=== PATIENT | male | born 1980 | race Caucasian/White ===

== ENCOUNTER 2022-09-03 15:35 | Inpatient (IN) | payer MEDICARE, OTHER, MEDICAID, SELFPAY ==
[2022-09-03] VITALS (10 sets, daily range): BP systolic 97–121; BP diastolic 42–69; PULSE 51–79; RESP 15–16; TEMP 35.2–36.8; O2SAT 94–100; BMI 35.5
--- NOTE | ~2022-09-03 | MR_ITS ---
EXAMINATION: MR BRAIN WITHOUT AND WITH CONTRAST MR/MR head/brain wo/w con IMPRESSION: No images were obtained.
--- NOTE | ~2022-09-03 | CT_ITS ---
EXAMINATION: CT HEAD WITHOUT CONTRAST CLINICAL INFORMATION: Altered mental status. TECHNIQUE: Multidetector CT imaging of the head was obtained without the use of intravenous contrast. Coronal and sagittal reformatted images were generated at the technologist workstation. This CT examination was performed using dose optimization techniques as appropriate, variously including the following: *Automated exposure control *Adjustment of mA and/or kV according to patient size (this includes techniques or standardized protocols for targeted exams where dose is matched to indication/reason for exam; i.e. extremities or head) *Use of iterative reconstruction technique DLP: 824 mGy-cm. FINDINGS: There is no evidence of acute intracranial hemorrhage or territorial infarction. No abnormal mass-effect or midline shift is seen. Trent to white matter differentiation is well preserved. No extra-axial fluid collections are identified. The ventricles and sulci are normal in size. There is no abnormal attenuation within the brain parenchyma. The osseous structures and soft tissues are normal. The mastoid air cells are well-aerated. There is mucoperiosteal in the bilateral maxillary and in the right ethmoid and sphenoid sinuses. The frontal sinuses are hypoplastic. CT/CT head/brain wo IV con IMPRESSION: 1. There are no acute bleeds or territorial infarcts. No masses are demonstrated.
--- NOTE | ~2022-09-03 | XR_ITS ---
EXAMINATION: XR CHEST CLINICAL INFORMATION: Weakness COMPARISON: None TECHNIQUE: Frontal view of the chest was obtained. FINDINGS: Hypoinflated lungs. Prominent central pulmonary vasculature, nonspecific but likely accentuated due to low lung volumes. No gross lobar consolidation. The cardiac silhouette is suboptimally visualized due to low lung volumes. No large pleural effusion. No pneumothorax. XR/XR chest 1V IMPRESSION: Low lung volumes. No gross lobar consolidation.
--- NOTE | 2022-09-03 15:41 | ED.GENADULT ---
HPI - General Adult General Chief complaint: General Medical <Rocio Suero NP - Last Filed: 09/03/22 15:50> Stated complaint: sleepy, wanted to get client checked out <Rocio Suero NP - Last Filed: 09/03/22 15:50> Time Seen by Provider: 09/03/22 16:02 <Rocio Suero NP - Last Filed: 09/03/22 15:50> Source: family (Mother) <Rocio Beltran MD - Last Filed: 09/03/22 21:19> Mode of arrival: wheelchair <Rocio Beltran MD - Last Filed: 09/03/22 21:19> Limitations: other (Altered mental status, nonverbal at baseline) <Rocio Beltran MD - Last Filed: 09/03/22 21:19> History of Present Illness HPI narrative: Patient comes to the emergency room accompanied by his mother and intermediate staff. The mother reports that this morning, patient was supposed to have a PCP appointment for his 1 year physical exam. When patient woke up this morning, he was acting normal, at baseline, nonverbal as usual. When the patient and his mother arrived today PCPs office, patient was in his wheelchair, very lethargic. The patient's mother decided to take him back to the intermediate, they allowed him to sleep for approximately 5 hours. Patient has not woken up completely, lethargic, it was decided that the patient needed to come to the emergency room. The mother reports that back on [birth year], on the patient's birthday, patient had a similar presentation. This is the 2nd time that this happens to the patient. The mother spoke with the intermediate director, who raised a concern that there may be a staff member giving illicit drugs to the patient, but has not been confirmed. According to the patient's mother, the mother and the intermediate director already filed the concern to the proper authorities. Patient is unable to give any history. <Rocio Beltran MD - Last Filed: 09/03/22 21:19> Related Data Allergies/adverse reactions: Allergies Allergy/AdvReac Type Severity Reaction Status Date / Time haloperidol [From Haldol] Allergy Unknown Unknown Verified 09/03/22 15:42 lactose Allergy Unknown Unknown Verified 09/03/22 15:43 <Rocio Suero NP - Last Filed: 09/03/22 15:50> Review of Systems Review of Systems: Yes Unobtainable due to mental condition <Rocio Beltran MD - Last Filed: 09/03/22 21:19> [facility] Past Medical History Medical History: Medical History (Updated 09/03/22 @ 21:19 by Rocio Beltran MD) Autism Nonverbal <Rocio Suero NP - Last Filed: 09/03/22 15:50> Social History Social History: Social History Alcohol intake: never Smoked in Last 30 Days: No Advance Directives: No Advance Directives Information Provided: Yes <Rocio Suero NP - Last Filed: 09/03/22 15:50> Physical Exam ED Vital Signs: Vital Signs - 24 hr 09/03/22 15:43 09/03/22 16:25 09/03/22 17:19 Temperature 96.8 F 97.0 F 95.3 F L Pulse Rate 51 53 56 Respiratory Rate 16 16 16 Blood Pressure 109/69 110/59 L 115/66 Pulse Oximetry 97 97 100 Oxygen Delivery Method Room Air Room Air Room Air 09/03/22 18:41 09/03/22 19:55 09/03/22 20:37 Temperature 96.3 F L 96.8 F 97.7 F Pulse Rate 55 65 64 Respiratory Rate 15 16 16 Blood Pressure 105/46 L 121/59 L 97/47 L Pulse Oximetry 97 97 96 Oxygen Delivery Method Room Air Room Air Room Air BMI result Body Mass Index 35.5 <Rocio Suero NP - Last Filed: 09/03/22 15:50> Vital Signs - 24 hr 09/03/22 15:43 09/03/22 16:25 09/03/22 17:19 Temperature 96.8 F 97.0 F 95.3 F L Pulse Rate 51 53 56 Respiratory Rate 16 16 16 Blood Pressure 109/69 110/59 L 115/66 Pulse Oximetry 97 97 100 Oxygen Delivery Method Room Air Room Air Room Air 09/03/22 18:41 09/03/22 19:55 09/03/22 20:37 Temperature 96.3 F L 96.8 F 97.7 F Pulse Rate 55 65 64 Respiratory Rate 15 16 16 Blood Pressure 105/46 L 121/59 L 97/47 L Pulse Oximetry 97 97 96 Oxygen Delivery Method Room Air Room Air Room Air BMI result Body Mass Index 35.5 <Rocio Beltran MD - Last Filed: 09/03/22 21:19> Const Other: Appearance: Very somnolent, arousable to voice Eyes: Borderline pinpoint pupils, Pupils equal, round and reactive to light. ENT: Pharynx normal. Normal oral mucosa Neck: Normal inspection. Neck supple. No lymph nodes noted. No crepitus CVS: Normal heart rate and rhythm. Pulses normal. Normal S1 and S2 Respiratory: No respiratory distress. Breath sounds normal. No Wheezing. No rales Abdomen: Soft and nontender. No rigidity. No distention. Skin: Skin warm and dry. Normal skin color. Normal skin turgor. Extremities: No lower extremity edema. No Lacerations. No Rash Neuro: Somnolent, unable to participate in cranial nerve assessment Psych: calm, somnolent <Rocio Beltran MD - Last Filed: 09/03/22 21:19> Course Course Course Narrative: This is a rapid medical exam. Deferred additional HPI, ROS, PE to primary provider. Patient resides at [facility], [place]) and here with worker. 42 yo male with past medical history of anxiety, OCD, constipation here with complaints of lethargy since waking this morning. Here with staff who cannot recall any injury or trauma. No other s/s that staff is aware of. Unsure if there was any change in medications Patient very drowsy in triage, rouses to verbal but immediately falls asleep. Will check labs, UA, CXR, EKG. VSS-direct to room d/t AMS <Rocio Suero NP - Last Filed: 09/03/22 15:50> This is a rapid medical exam. Deferred additional HPI, ROS, PE to primary provider. Patient resides at [facility], [place]) and here with worker. 42 yo male with past medical history of anxiety, OCD, constipation here with complaints of lethargy since waking this morning. Here with staff who cannot recall any injury or trauma. No other s/s that staff is aware of. Unsure if there was any change in medications Patient very drowsy in triage, rouses to verbal but immediately falls asleep. Will check labs, UA, CXR, EKG. VSS-direct to room d/t AMS Patient's labs do not show any significant acute abnormality. However, patient's rectal temperature is 95.3 degrees. Patient was placed on a Daquan Hugger. Patient wakes up to voice, remains somnolent. I discussed the patient with Dr. Anthony, pt being admitted <Rocio Beltran MD - Last Filed: 09/03/22 21:19> Medical Decision Making Differential Diagnosis Differential Diagnoses: The differential diagnosis associated with the presentation includes (Accidental overdose, medication encephalopathy, sepsis) <Rocio Beltran MD - Last Filed: 09/03/22 21:19> Admission/Observation Consideration of admission/observation: Escalation of care including admission/observation considered (Patient does not seem to be septic, white blood cell count and lactic acid within normal limits, no hypotension. However, patient has hypothermia. No clear reason.) <Rocio Beltran MD - Last Filed: 09/03/22 21:19> Consult Healthcare Provider Management of the patient was discussed with: Hospitalist <Rocio Beltran MD - Last Filed: 09/03/22 21:19> I discussed the patient with Dr. Anthony, we will keep the patient for observation <Rocio Beltran MD - Last Filed: 09/03/22 21:19> Lab Data MDM Lab Attestation statement: I reviewed the patient's lab results. <Rocio Beltran MD - Last Filed: 09/03/22 21:19> Result Diagrams: : 09/03/22 16:49 09/03/22 17:04 <Rocio Suero NP - Last Filed: 09/03/22 15:50> Labs: Lab Results 09/03/22 09/03/22 09/03/22 Range/Units 16:05 16:49 16:49 WBC 5.5 (4.8-10.8) X10*3/uL RBC 5.03 (4.60-5.80) X10*6/uL Hgb 14.8 (14.0-18.0) g/dl Hct 44.0 (42.0-52.0) % MCV 87.5 (80.0-98.0) fL MCH 29.4 (27.0-33.0) pg MCHC 33.6 (31.0-36.0) g/dl RDW 12.1 (11.0-16.0) % Plt Count 172 (160-400) X10*3/uL MPV 9.5 (9.4-12.4) fL Immature Gran % (Auto) 0.4 (0.0-0.4) % Neut % (Auto) 60.5 (45-73) % Lymph % (Auto) 28.5 (20-40) % [place] % (Auto) 7.9 (2-11) % Eos % (Auto) 2.2 (0-4) % Baso % (Auto) 0.5 (0-2) % Lymph # (Auto) 1.6 (1.2-4.9) X10*3/uL [place] # (Auto) 0.4 (0.1-1.2) X10*3/uL Eos # (Auto) 0.1 (0.0-0.4) X10*3/uL Baso # (Auto) 0.0 (0.0-0.2) X10*3/uL Abs Immat Gran (auto) 0.02 (0.00-0.03) X10*3/uL Absolute Neuts (auto) 3.3 (2.0-8.3) x10*3/uL Absolute Nucleated RBC 0.000 (0.0-0.012) X10*3/uL Nucleated RBC % (auto) 0.0 (0.0-0.2) /100WBC VBG pH (7.32-7.43) VBG pCO2 mmHg VBG pO2 mmHg VBG HCO3 (22-26) mmol/L VBG O2 Saturation % VBG Base Excess mmol/L Sodium 138 (135-145) mmol/L Potassium 4.2 (3.3-5.1) mmol/L Chloride 108 (96-108) mmol/L Carbon Dioxide 23 (22-29) mmol/L Anion Gap 11 L (12-20) BUN 17 H (9-16) mg/dL Creatinine 0.72 (0.5-1.4) mg/dL Estim Creat Clear Calc 163.5 Estimated GFR > 60 POC Glucose 104 (60-115) mg/dL Random Glucose 95 (60-115) mg/dL Lactic Acid (0.5-2.0) mmol/L Calcium 9.1 (8.4-10.2) mg/dL Magnesium 2.2 (1.6-2.6) mg/dL Total Bilirubin 0.9 (0.0-1.0) mg/dL Direct Bilirubin 0.3 (0.0-0.5) mg/dL AST 33 (5-37) U/L ALT 69 H (0-40) U/L Alkaline Phosphatase 62 (39-117) U/L Troponin I High Sens (<3.5-35.0) ng/L Total Protein 6.7 (6.5-8.0) g/dL Albumin 4.1 (3.5-5.0) g/dL Lipase (8-78) U/L TSH (0.32-4.0) uIU/mL Urine Color Urine Appearance Urine pH (5.0-9.0) Ur Specific [place] (1.005-1.025) Urine Protein (Neg-Trace) mg/dL Urine Glucose (UA) (Negative) mg/dL Urine Ketones (Negative) mg/dL Urine Blood (Negative) Urine Nitrite (Negative) Ur Leukocyte Esterase (Negative) Urine Opiates Screen (Not Detect) Urine Fentanyl Screen (Not Detect) Ur Barbiturates Screen (Not Detect) Ur Phencyclidine Scrn (Not Detect) Ur Amphetamines Screen (Not Detect) U Benzodiazepines Scrn (Not Detect) Urine Cocaine Screen (Not Detect) U Marijuana (THC) Screen (Not Detect) Ethyl Alcohol mg/dL COVID-19 (BOOM) (Negative) COVID-19 Clin Com Influenza Type A (PCR) (Negative) Influenza Type B (PCR) (Negative) RSV RNA Qual (PCR) (Negative) SARS-CoV-2 RNA (RT-PCR) (Negative) 09/03/22 09/03/22 09/03/22 Range/Units 16:49 16:49 16:49 WBC 5.5 (4.8-10.8) X10*3/uL RBC 4.98 (4.60-5.80) X10*6/uL Hgb 14.8 (14.0-18.0) g/dl Hct 43.4 (42.0-52.0) % MCV 87.1 (80.0-98.0) fL MCH 29.7 (27.0-33.0) pg MCHC 34.1 (31.0-36.0) g/dl RDW 12.1 (11.0-16.0) % Plt Count 172 (160-400) X10*3/uL MPV 9.9 (9.4-12.4) fL Immature Gran % (Auto) 0.4 (0.0-0.4) % Neut % (Auto) 58.9 (45-73) % Lymph % (Auto) 30.1 (20-40) % [place] % (Auto) 8.1 (2-11) % Eos % (Auto) 1.9 (0-4) % Baso % (Auto) 0.6 (0-2) % Lymph # (Auto) 1.6 (1.2-4.9) X10*3/uL [place] # (Auto) 0.4 (0.1-1.2) X10*3/uL Eos # (Auto) 0.1 (0.0-0.4) X10*3/uL Baso # (Auto) 0.0 (0.0-0.2) X10*3/uL Abs Immat Gran (auto) 0.02 (0.00-0.03) X10*3/uL Absolute Neuts (auto) 3.1 (2.0-8.3) x10*3/uL Absolute Nucleated RBC 0.000 (0.0-0.012) X10*3/uL Nucleated RBC % (auto) 0.0 (0.0-0.2) /100WBC VBG pH (7.32-7.43) VBG pCO2 mmHg VBG pO2 mmHg VBG HCO3 (22-26) mmol/L VBG O2 Saturation % VBG Base Excess mmol/L Sodium (135-145) mmol/L Potassium (3.3-5.1) mmol/L Chloride (96-108) mmol/L Carbon Dioxide (22-29) mmol/L Anion Gap (12-20) BUN (9-16) mg/dL Creatinine (0.5-1.4) mg/dL Estim Creat Clear Calc Estimated GFR POC Glucose (60-115) mg/dL Random Glucose (60-115) mg/dL Lactic Acid 1.0 (0.5-2.0) mmol/L Calcium (8.4-10.2) mg/dL Magnesium (1.6-2.6) mg/dL Total Bilirubin (0.0-1.0) mg/dL Direct Bilirubin (0.0-0.5) mg/dL AST (5-37) U/L ALT (0-40) U/L Alkaline Phosphatase (39-117) U/L Troponin I High Sens < 3.5 (<3.5-35.0) ng/L Total Protein (6.5-8.0) g/dL Albumin (3.5-5.0) g/dL Lipase (8-78) U/L TSH (0.32-4.0) uIU/mL Urine Color Urine Appearance Urine pH (5.0-9.0) Ur Specific [place] (1.005-1.025) Urine Protein (Neg-Trace) mg/dL Urine Glucose (UA) (Negative) mg/dL Urine Ketones (Negative) mg/dL Urine Blood (Negative) Urine Nitrite (Negative) Ur Leukocyte Esterase (Negative) Urine Opiates Screen (Not Detect) Urine Fentanyl Screen (Not Detect) Ur Barbiturates Screen (Not Detect) Ur Phencyclidine Scrn (Not Detect) Ur Amphetamines Screen (Not Detect) U Benzodiazepines Scrn (Not Detect) Urine Cocaine Screen (Not Detect) U Marijuana (THC) Screen (Not Detect) Ethyl Alcohol mg/dL COVID-19 (BOOM) (Negative) COVID-19 Clin Com Influenza Type A (PCR) (Negative) Influenza Type B (PCR) (Negative) RSV RNA Qual (PCR) (Negative) SARS-CoV-2 RNA (RT-PCR) (Negative) 09/03/22 09/03/22 09/03/22 Range/Units 16:49 16:49 16:54 WBC (4.8-10.8) X10*3/uL RBC (4.60-5.80) X10*6/uL Hgb (14.0-18.0) g/dl Hct (42.0-52.0) % MCV (80.0-98.0) fL MCH (27.0-33.0) pg MCHC (31.0-36.0) g/dl RDW (11.0-16.0) % Plt Count (160-400) X10*3/uL MPV (9.4-12.4) fL Immature Gran % (Auto) (0.0-0.4) % Neut % (Auto) (45-73) % Lymph % (Auto) (20-40) % [place] % (Auto) (2-11) % Eos % (Auto) (0-4) % Baso % (Auto) (0-2) % Lymph # (Auto) (1.2-4.9) X10*3/uL [place] # (Auto) (0.1-1.2) X10*3/uL Eos # (Auto) (0.0-0.4) X10*3/uL Baso # (Auto) (0.0-0.2) X10*3/uL Abs Immat Gran (auto) (0.00-0.03) X10*3/uL Absolute Neuts (auto) (2.0-8.3) x10*3/uL Absolute Nucleated RBC (0.0-0.012) X10*3/uL Nucleated RBC % (auto) (0.0-0.2) /100WBC VBG pH 7.46 H (7.32-7.43) VBG pCO2 28 mmHg VBG pO2 139 mmHg VBG HCO3 20 L (22-26) mmol/L VBG O2 Saturation 100.0 % VBG Base Excess -1.8 mmol/L Sodium (135-145) mmol/L Potassium (3.3-5.1) mmol/L Chloride (96-108) mmol/L Carbon Dioxide (22-29) mmol/L Anion Gap (12-20) BUN (9-16) mg/dL Creatinine (0.5-1.4) mg/dL Estim Creat Clear Calc Estimated GFR POC Glucose (60-115) mg/dL Random Glucose (60-115) mg/dL Lactic Acid (0.5-2.0) mmol/L Calcium (8.4-10.2) mg/dL Magnesium (1.6-2.6) mg/dL Total Bilirubin (0.0-1.0) mg/dL Direct Bilirubin (0.0-0.5) mg/dL AST (5-37) U/L ALT (0-40) U/L Alkaline Phosphatase (39-117) U/L Troponin I High Sens (<3.5-35.0) ng/L Total Protein (6.5-8.0) g/dL Albumin (3.5-5.0) g/dL Lipase (8-78) U/L TSH (0.32-4.0) uIU/mL Urine Color Urine Appearance Urine pH (5.0-9.0) Ur Specific [place] (1.005-1.025) Urine Protein (Neg-Trace) mg/dL Urine Glucose (UA) (Negative) mg/dL Urine Ketones (Negative) mg/dL Urine Blood (Negative) Urine Nitrite (Negative) Ur Leukocyte Esterase (Negative) Urine Opiates Screen (Not Detect) Urine Fentanyl Screen (Not Detect) Ur Barbiturates Screen (Not Detect) Ur Phencyclidine Scrn (Not Detect) Ur Amphetamines Screen (Not Detect) U Benzodiazepines Scrn (Not Detect) Urine Cocaine Screen (Not Detect) U Marijuana (THC) Screen (Not Detect) Ethyl Alcohol mg/dL COVID-19 (BOOM) Negative (Negative) COVID-19 Clin Com See Note Influenza Type A (PCR) NEGATIVE (Negative) Influenza Type B (PCR) NEGATIVE (Negative) RSV RNA Qual (PCR) NEGATIVE (Negative) SARS-CoV-2 RNA (RT-PCR) NEGATIVE (Negative) 09/03/22 09/03/22 09/03/22 Range/Units 17:04 18:01 18:01 WBC (4.8-10.8) X10*3/uL RBC (4.60-5.80) X10*6/uL Hgb (14.0-18.0) g/dl Hct (42.0-52.0) % MCV (80.0-98.0) fL MCH (27.0-33.0) pg MCHC (31.0-36.0) g/dl RDW (11.0-16.0) % Plt Count (160-400) X10*3/uL MPV (9.4-12.4) fL Immature Gran % (Auto) (0.0-0.4) % Neut % (Auto) (45-73) % Lymph % (Auto) (20-40) % [place] % (Auto) (2-11) % Eos % (Auto) (0-4) % Baso % (Auto) (0-2) % Lymph # (Auto) (1.2-4.9) X10*3/uL [place] # (Auto) (0.1-1.2) X10*3/uL Eos # (Auto) (0.0-0.4) X10*3/uL Baso # (Auto) (0.0-0.2) X10*3/uL Abs Immat Gran (auto) (0.00-0.03) X10*3/uL Absolute Neuts (auto) (2.0-8.3) x10*3/uL Absolute Nucleated RBC (0.0-0.012) X10*3/uL Nucleated RBC % (auto) (0.0-0.2) /100WBC VBG pH (7.32-7.43) VBG pCO2 mmHg VBG pO2 mmHg VBG HCO3 (22-26) mmol/L VBG O2 Saturation % VBG Base Excess mmol/L Sodium 138 (135-145) mmol/L Potassium 4.2 (3.3-5.1) mmol/L Chloride 106 (96-108) mmol/L Carbon Dioxide 26 (22-29) mmol/L Anion Gap 10 L (12-20) BUN 17 H (9-16) mg/dL Creatinine 0.68 (0.5-1.4) mg/dL Estim Creat Clear Calc 173.1 Estimated GFR > 60 POC Glucose (60-115) mg/dL Random Glucose 96 (60-115) mg/dL Lactic Acid (0.5-2.0) mmol/L Calcium 9.0 (8.4-10.2) mg/dL Magnesium 2.0 (1.6-2.6) mg/dL Total Bilirubin 0.9 (0.0-1.0) mg/dL Direct Bilirubin 0.3 (0.0-0.5) mg/dL AST 30 (5-37) U/L ALT 64 H (0-40) U/L Alkaline Phosphatase 57 (39-117) U/L Troponin I High Sens (<3.5-35.0) ng/L Total Protein 6.2 L (6.5-8.0) g/dL Albumin 4.0 (3.5-5.0) g/dL Lipase 21 (8-78) U/L TSH 1.26 (0.32-4.0) uIU/mL Urine Color Yellow Urine Appearance Clear Urine pH 7.0 (5.0-9.0) Ur Specific [place] 1.010 (1.005-1.025) Urine Protein Negative (Neg-Trace) mg/dL Urine Glucose (UA) Negative (Negative) mg/dL Urine Ketones Negative (Negative) mg/dL Urine Blood Negative (Negative) Urine Nitrite Negative (Negative) Ur Leukocyte Esterase Negative (Negative) Urine Opiates Screen Not Detected (Not Detect) Urine Fentanyl Screen Not Detected (Not Detect) Ur Barbiturates Screen Not Detected (Not Detect) Ur Phencyclidine Scrn Not Detected (Not Detect) Ur Amphetamines Screen Not Detected (Not Detect) U Benzodiazepines Scrn Not Detected (Not Detect) Urine Cocaine Screen Not Detected (Not Detect) U Marijuana (THC) Screen Not Detected (Not Detect) Ethyl Alcohol < 10 mg/dL COVID-19 (BOOM) (Negative) COVID-19 Clin Com Influenza Type A (PCR) (Negative) Influenza Type B (PCR) (Negative) RSV RNA Qual (PCR) (Negative) SARS-CoV-2 RNA (RT-PCR) (Negative) <Rocio Suero, [employer] - Last Filed: 09/03/22 15:50> Lab Results 09/03/22 09/03/22 09/03/22 Range/Units 16:05 16:49 16:49 WBC 5.5 (4.8-10.8) X10*3/uL RBC 5.03 (4.60-5.80) X10*6/uL Hgb 14.8 (14.0-18.0) g/dl Hct 44.0 (42.0-52.0) % MCV 87.5 (80.0-98.0) fL MCH 29.4 (27.0-33.0) pg MCHC 33.6 (31.0-36.0) g/dl RDW 12.1 (11.0-16.0) % Plt Count 172 (160-400) X10*3/uL MPV 9.5 (9.4-12.4) fL Immature Gran % (Auto) 0.4 (0.0-0.4) % Neut % (Auto) 60.5 (45-73) % Lymph % (Auto) 28.5 (20-40) % [place] % (Auto) 7.9 (2-11) % Eos % (Auto) 2.2 (0-4) % Baso % (Auto) 0.5 (0-2) % Lymph # (Auto) 1.6 (1.2-4.9) X10*3/uL [place] # (Auto) 0.4 (0.1-1.2) X10*3/uL Eos # (Auto) 0.1 (0.0-0.4) X10*3/uL Baso # (Auto) 0.0 (0.0-0.2) X10*3/uL Abs Immat Gran (auto) 0.02 (0.00-0.03) X10*3/uL Absolute Neuts (auto) 3.3 (2.0-8.3) x10*3/uL Absolute Nucleated RBC 0.000 (0.0-0.012) X10*3/uL Nucleated RBC % (auto) 0.0 (0.0-0.2) /100WBC VBG pH (7.32-7.43) VBG pCO2 mmHg VBG pO2 mmHg VBG HCO3 (22-26) mmol/L VBG O2 Saturation % VBG Base Excess mmol/L Sodium 138 (135-145) mmol/L Potassium 4.2 (3.3-5.1) mmol/L Chloride 108 (96-108) mmol/L Carbon Dioxide 23 (22-29) mmol/L Anion Gap 11 L (12-20) BUN 17 H (9-16) mg/dL Creatinine 0.72 (0.5-1.4) mg/dL Estim Creat Clear Calc 163.5 Estimated GFR > 60 POC Glucose 104 (60-115) mg/dL Random Glucose 95 (60-115) mg/dL Lactic Acid (0.5-2.0) mmol/L Calcium 9.1 (8.4-10.2) mg/dL Magnesium 2.2 (1.6-2.6) mg/dL Total Bilirubin 0.9 (0.0-1.0) mg/dL Direct Bilirubin 0.3 (0.0-0.5) mg/dL AST 33 (5-37) U/L ALT 69 H (0-40) U/L Alkaline Phosphatase 62 (39-117) U/L Troponin I High Sens (<3.5-35.0) ng/L Total Protein 6.7 (6.5-8.0) g/dL Albumin 4.1 (3.5-5.0) g/dL Lipase (8-78) U/L TSH (0.32-4.0) uIU/mL Urine Color Urine Appearance Urine pH (5.0-9.0) Ur Specific [place] (1.005-1.025) Urine Protein (Neg-Trace) mg/dL Urine Glucose (UA) (Negative) mg/dL Urine Ketones (Negative) mg/dL Urine Blood (Negative) Urine Nitrite (Negative) Ur Leukocyte Esterase (Negative) Urine Opiates Screen (Not Detect) Urine Fentanyl Screen (Not Detect) Ur Barbiturates Screen (Not Detect) Ur Phencyclidine Scrn (Not Detect) Ur Amphetamines Screen (Not Detect) U Benzodiazepines Scrn (Not Detect) Urine Cocaine Screen (Not Detect) U Marijuana (THC) Screen (Not Detect) Ethyl Alcohol mg/dL COVID-19 (BOOM) (Negative) COVID-19 Clin Com Influenza Type A (PCR) (Negative) Influenza Type B (PCR) (Negative) RSV RNA Qual (PCR) (Negative) SARS-CoV-2 RNA (RT-PCR) (Negative) 09/03/22 09/03/22 09/03/22 Range/Units 16:49 16:49 16:49 WBC 5.5 (4.8-10.8) X10*3/uL RBC 4.98 (4.60-5.80) X10*6/uL Hgb 14.8 (14.0-18.0) g/dl Hct 43.4 (42.0-52.0) % MCV 87.1 (80.0-98.0) fL MCH 29.7 (27.0-33.0) pg MCHC 34.1 (31.0-36.0) g/dl RDW 12.1 (11.0-16.0) % Plt Count 172 (160-400) X10*3/uL MPV 9.9 (9.4-12.4) fL Immature Gran % (Auto) 0.4 (0.0-0.4) % Neut % (Auto) 58.9 (45-73) % Lymph % (Auto) 30.1 (20-40) % [place] % (Auto) 8.1 (2-11) % Eos % (Auto) 1.9 (0-4) % Baso % (Auto) 0.6 (0-2) % Lymph # (Auto) 1.6 (1.2-4.9) X10*3/uL [place] # (Auto) 0.4 (0.1-1.2) X10*3/uL Eos # (Auto) 0.1 (0.0-0.4) X10*3/uL Baso # (Auto) 0.0 (0.0-0.2) X10*3/uL Abs Immat Gran (auto) 0.02 (0.00-0.03) X10*3/uL Absolute Neuts (auto) 3.1 (2.0-8.3) x10*3/uL Absolute Nucleated RBC 0.000 (0.0-0.012) X10*3/uL Nucleated RBC % (auto) 0.0 (0.0-0.2) /100WBC VBG pH (7.32-7.43) VBG pCO2 mmHg VBG pO2 mmHg VBG HCO3 (22-26) mmol/L VBG O2 Saturation % VBG Base Excess mmol/L Sodium (135-145) mmol/L Potassium (3.3-5.1) mmol/L Chloride (96-108) mmol/L Carbon Dioxide (22-29) mmol/L Anion Gap (12-20) BUN (9-16) mg/dL Creatinine (0.5-1.4) mg/dL Estim Creat Clear Calc Estimated GFR POC Glucose (60-115) mg/dL Random Glucose (60-115) mg/dL Lactic Acid 1.0 (0.5-2.0) mmol/L Calcium (8.4-10.2) mg/dL Magnesium (1.6-2.6) mg/dL Total Bilirubin (0.0-1.0) mg/dL Direct Bilirubin (0.0-0.5) mg/dL AST (5-37) U/L ALT (0-40) U/L Alkaline Phosphatase (39-117) U/L Troponin I High Sens < 3.5 (<3.5-35.0) ng/L Total Protein (6.5-8.0) g/dL Albumin (3.5-5.0) g/dL Lipase (8-78) U/L TSH (0.32-4.0) uIU/mL Urine Color Urine Appearance Urine pH (5.0-9.0) Ur Specific [place] (1.005-1.025) Urine Protein (Neg-Trace) mg/dL Urine Glucose (UA) (Negative) mg/dL Urine Ketones (Negative) mg/dL Urine Blood (Negative) Urine Nitrite (Negative) Ur Leukocyte Esterase (Negative) Urine Opiates Screen (Not Detect) Urine Fentanyl Screen (Not Detect) Ur Barbiturates Screen (Not Detect) Ur Phencyclidine Scrn (Not Detect) Ur Amphetamines Screen (Not Detect) U Benzodiazepines Scrn (Not Detect) Urine Cocaine Screen (Not Detect) U Marijuana (THC) Screen (Not Detect) Ethyl Alcohol mg/dL COVID-19 (BOOM) (Negative) COVID-19 Clin Com Influenza Type A (PCR) (Negative) Influenza Type B (PCR) (Negative) RSV RNA Qual (PCR) (Negative) SARS-CoV-2 RNA (RT-PCR) (Negative) 09/03/22 09/03/22 09/03/22 Range/Units 16:49 16:49 16:54 WBC (4.8-10.8) X10*3/uL RBC (4.60-5.80) X10*6/uL Hgb (14.0-18.0) g/dl Hct (42.0-52.0) % MCV (80.0-98.0) fL MCH (27.0-33.0) pg MCHC (31.0-36.0) g/dl RDW (11.0-16.0) % Plt Count (160-400) X10*3/uL MPV (9.4-12.4) fL Immature Gran % (Auto) (0.0-0.4) % Neut % (Auto) (45-73) % Lymph % (Auto) (20-40) % [place] % (Auto) (2-11) % Eos % (Auto) (0-4) % Baso % (Auto) (0-2) % Lymph # (Auto) (1.2-4.9) X10*3/uL [place] # (Auto) (0.1-1.2) X10*3/uL Eos # (Auto) (0.0-0.4) X10*3/uL Baso # (Auto) (0.0-0.2) X10*3/uL Abs Immat Gran (auto) (0.00-0.03) X10*3/uL Absolute Neuts (auto) (2.0-8.3) x10*3/uL Absolute Nucleated RBC (0.0-0.012) X10*3/uL Nucleated RBC % (auto) (0.0-0.2) /100WBC VBG pH 7.46 H (7.32-7.43) VBG pCO2 28 mmHg VBG pO2 139 mmHg VBG HCO3 20 L (22-26) mmol/L VBG O2 Saturation 100.0 % VBG Base Excess -1.8 mmol/L Sodium (135-145) mmol/L Potassium (3.3-5.1) mmol/L Chloride (96-108) mmol/L Carbon Dioxide (22-29) mmol/L Anion Gap (12-20) BUN (9-16) mg/dL Creatinine (0.5-1.4) mg/dL Estim Creat Clear Calc Estimated GFR POC Glucose (60-115) mg/dL Random Glucose (60-115) mg/dL Lactic Acid (0.5-2.0) mmol/L Calcium (8.4-10.2) mg/dL Magnesium (1.6-2.6) mg/dL Total Bilirubin (0.0-1.0) mg/dL Direct Bilirubin (0.0-0.5) mg/dL AST (5-37) U/L ALT (0-40) U/L Alkaline Phosphatase (39-117) U/L Troponin I High Sens (<3.5-35.0) ng/L Total Protein (6.5-8.0) g/dL Albumin (3.5-5.0) g/dL Lipase (8-78) U/L TSH (0.32-4.0) uIU/mL Urine Color Urine Appearance Urine pH (5.0-9.0) Ur Specific [place] (1.005-1.025) Urine Protein (Neg-Trace) mg/dL Urine Glucose (UA) (Negative) mg/dL Urine Ketones (Negative) mg/dL Urine Blood (Negative) Urine Nitrite (Negative) Ur Leukocyte Esterase (Negative) Urine Opiates Screen (Not Detect) Urine Fentanyl Screen (Not Detect) Ur Barbiturates Screen (Not Detect) Ur Phencyclidine Scrn (Not Detect) Ur Amphetamines Screen (Not Detect) U Benzodiazepines Scrn (Not Detect) Urine Cocaine Screen (Not Detect) U Marijuana (THC) Screen (Not Detect) Ethyl Alcohol mg/dL COVID-19 (BOOM) Negative (Negative) COVID-19 Clin Com See Note Influenza Type A (PCR) NEGATIVE (Negative) Influenza Type B (PCR) NEGATIVE (Negative) RSV RNA Qual (PCR) NEGATIVE (Negative) SARS-CoV-2 RNA (RT-PCR) NEGATIVE (Negative) 09/03/22 09/03/22 09/03/22 Range/Units 17:04 18:01 18:01 WBC (4.8-10.8) X10*3/uL RBC (4.60-5.80) X10*6/uL Hgb (14.0-18.0) g/dl Hct (42.0-52.0) % MCV (80.0-98.0) fL MCH (27.0-33.0) pg MCHC (31.0-36.0) g/dl RDW (11.0-16.0) % Plt Count (160-400) X10*3/uL MPV (9.4-12.4) fL Immature Gran % (Auto) (0.0-0.4) % Neut % (Auto) (45-73) % Lymph % (Auto) (20-40) % [place] % (Auto) (2-11) % Eos % (Auto) (0-4) % Baso % (Auto) (0-2) % Lymph # (Auto) (1.2-4.9) X10*3/uL [place] # (Auto) (0.1-1.2) X10*3/uL Eos # (Auto) (0.0-0.4) X10*3/uL Baso # (Auto) (0.0-0.2) X10*3/uL Abs Immat Gran (auto) (0.00-0.03) X10*3/uL Absolute Neuts (auto) (2.0-8.3) x10*3/uL Absolute Nucleated RBC (0.0-0.012) X10*3/uL Nucleated RBC % (auto) (0.0-0.2) /100WBC VBG pH (7.32-7.43) VBG pCO2 mmHg VBG pO2 mmHg VBG HCO3 (22-26) mmol/L VBG O2 Saturation % VBG Base Excess mmol/L Sodium 138 (135-145) mmol/L Potassium 4.2 (3.3-5.1) mmol/L Chloride 106 (96-108) mmol/L Carbon Dioxide 26 (22-29) mmol/L Anion Gap 10 L (12-20) BUN 17 H (9-16) mg/dL Creatinine 0.68 (0.5-1.4) mg/dL Estim Creat Clear Calc 173.1 Estimated GFR > 60 POC Glucose (60-115) mg/dL Random Glucose 96 (60-115) mg/dL Lactic Acid (0.5-2.0) mmol/L Calcium 9.0 (8.4-10.2) mg/dL Magnesium 2.0 (1.6-2.6) mg/dL Total Bilirubin 0.9 (0.0-1.0) mg/dL Direct Bilirubin 0.3 (0.0-0.5) mg/dL AST 30 (5-37) U/L ALT 64 H (0-40) U/L Alkaline Phosphatase 57 (39-117) U/L Troponin I High Sens (<3.5-35.0) ng/L Total Protein 6.2 L (6.5-8.0) g/dL Albumin 4.0 (3.5-5.0) g/dL Lipase 21 (8-78) U/L TSH 1.26 (0.32-4.0) uIU/mL Urine Color Yellow Urine Appearance Clear Urine pH 7.0 (5.0-9.0) Ur Specific [place] 1.010 (1.005-1.025) Urine Protein Negative (Neg-Trace) mg/dL Urine Glucose (UA) Negative (Negative) mg/dL Urine Ketones Negative (Negative) mg/dL Urine Blood Negative (Negative) Urine Nitrite Negative (Negative) Ur Leukocyte Esterase Negative (Negative) Urine Opiates Screen Not Detected (Not Detect) Urine Fentanyl Screen Not Detected (Not Detect) Ur Barbiturates Screen Not Detected (Not Detect) Ur Phencyclidine Scrn Not Detected (Not Detect) Ur Amphetamines Screen Not Detected (Not Detect) U Benzodiazepines Scrn Not Detected (Not Detect) Urine Cocaine Screen Not Detected (Not Detect) U Marijuana (THC) Screen Not Detected (Not Detect) Ethyl Alcohol < 10 mg/dL COVID-19 (BOOM) (Negative) COVID-19 Clin Com Influenza Type A (PCR) (Negative) Influenza Type B (PCR) (Negative) RSV RNA Qual (PCR) (Negative) SARS-CoV-2 RNA (RT-PCR) (Negative) <Rocio Beltran MD - Last Filed: 09/03/22 21:19> Independent Interpretation I performed an independent interpretation of an: Plain X-Ray (My interpretation of x-rays are no acute findings. FINDINGS: Hypoinflated lungs. Prominent central pulmonary vasculature, nonspecific but likely accentuated due to low lung volumes. Radiology report: No gross lobar consolidation. The cardiac silhouette is suboptimally visualized due to low lung vo) and CT Scan (My interpretation of the head CT shows no acute abnormality, no bleed) <Rocio Beltran MD - Last Filed: 09/03/22 21:19> Interpretation: CT scan report: FINDINGS: There is no evidence of acute intracranial hemorrhage or territorial infarction. No abnormal mass-effect or midline shift is seen. Trent to white matter differentiation is well preserved. No extra-axial fluid collections are identified. The ventricles and sulci are normal in size. There is no abnormal attenuation within the brain parenchyma. The osseous structures and soft tissues are normal. The mastoid air cells are well-aerated. There is mucoperiosteal in the bilateral maxillary and in the right ethmoid and sphenoid sinuses. The frontal sinuses are hypoplastic. CT/CT head/brain wo IV con IMPRESSION: 1. There are no acute bleeds or territorial infarcts. No masses are demonstrated. <Rocio Beltran MD - Last Filed: 09/03/22 21:19> Discharge Plan Discharge Clinical Impression: Hypothermia, Encephalopathy <Rocio Suero NP - Last Filed: 09/03/22 15:50> Patient Disposition: Admitted As Inpatient <Rocio Suero, [employer]PL[employer]ES DEMONSTRATOR - Last Filed: 09/03/22 15:50>
[2022-09-03 16:08] LABS: Glucose, Whole Blood 104 mg/dL (60-115)
--- NOTE | 2022-09-03 16:12 | ECG_ITS ---
Test Reason : ALTERED MENTAL Blood Pressure : / mmHG Vent. Rate : 059 BPM Atrial Rate : 059 BPM P-R Int : 172 ms QRS Dur : 108 ms QT Int : 418 ms P-R-T Axes : 032 047 040 degrees QTc Int : 413 ms Sinus bradycardia Early repolarization Otherwise normal ECG No previous ECGs available Referred By: Rocio Beltran Electronically Signed By:ELPIDIO RAMSEY
--- OUTSIDE RECORDS SUMMARY | 2022-09-03 16:32 | XMS_ITS | Encounter Summary ---
:1980 Author Care Team Providers Name Role Phone Lisa Pritchard MD Primary Care Provider [phone] Reason for Visit Other swollen lip sx started this morning Assessment and Plan 1. Laceration of lip Inner lip laceration appears to be due to patient's own tooth 1 cm abrasion to the outer upper left no laceration to the [place]mil[place] border Will cover with penicillin due to diffus layla poor dentition Monitor for evidence of increased pain o r swelling Ice and salt water rinses There is no other evidence of significan t trauma no fractured teeth Follow-up with primary care provider 5 t o 7 days ? penicillin V potassium 500 mg tablet Discussion Note: None recorded.Patient educational handouts: No information available. Plan of Care Reminders Provider Appointments None recorded. ? ? Lab None recorded. ? ? Referral None recorded. ? ? Procedures None recorded. ? ? Surgeries None recorded. ? ? Imaging None recorded. ? ? Medications Name Start Date ? ? Amitiza 24 mcg capsule ? clonazepam 0.5 mg tablet ? clonazepam 1 mg tablet ? clotrimazole 1 % topical cream ? famotidine 20 mg tablet ? fluoxetine 20 mg capsule ? fluticasone propionate 50 mcg/actuation nasal spray,newman spension ? lorazepam 1 mg tablet ? neomycin 3.5 mg/g-polymyxin B 10,000 unit/g-dexameth 0 .1 % eye oint ? nystatin 100,000 unit/gram topical ointment ? omeprazole 20 mg capsule,delayed release ? penicillin V potassium 500 mg tablet ? Take 1 tablet every 8 hours by oral route for 7 days. polyethylene glycol 3350 17 gram/dose oral powder ? propranolol 10 mg tablet ? ranitidine 150 mg tablet ? triamcinolone acetonide 0.1 % dental paste ? Medications Administered None recorded. Vitals Blood Pressure 97/62 mm[Hg] Results Lab Results None recorded. Allergies Code Code System Name Reaction Severity Onset 06331 RxNorm Halazone ? ? ? Problems None recorded. Procedures None recorded. Vaccine List None recorded. Social History Tobacco Smoking Status Never Smoker Functional Status Unknown. Past Encounters Encounter Date Diagnosis Provider 07/20/2022 Laceration of Lip JOSH Vargas : [address] [place] [address], Ph. [phone] History of Present Illness Note: <div>42-year-old male presenting with mother for evaluation of swollen lip which was noted this morning. Patient is nonverbal. He resides in a care home. His mother went to pick him up from thegroup home this morning when the morning staff noted a lip abrasion. Mother investigated further andnoted an internal laceration. Patient is unable to notify us of any other injuries. Per mother he isotherwise acting himself and there is no other evidence of injuries.</div> Review of Systems ? Comprehensive General Adult ROS Reported By: Patient Physical Exam ? Notes: <div>General: Alert and coop erative, no apparent distress</div><div>
</div ><div>Head: Normocephalic atraumatic no tenderness, step-offs, or ec chymosis

Skin: [place] warm and dry. 1 cm superficial abrasion to uppe r lip no active bleeding no foreign body or surrounding erythema

Eyes: Pupils equal round and reactive to light and accommodation bilaterally. E xtra ocular movements intact. Conjunctiva are clear bilaterally. Noninject ed sclera.

ENT: TMs are clear with visible tympanic membranes noted gilma aterally. Ear canals are without cerumen and infection bilaterally. Nasal passages are clear. Pharynx without erythema or edema diffusely. Uvula is mi dline. Tonsils without exudate noted bilaterally. No hemotympanum. Inner aspec t of upper lip with 1 cm superficial laceration no active bleeding lines up wit h central incisor, diffusely poor dentition no fractured teeth or loose luciana th. Halitosis.

Heart: Regular rate and rhythm with no murmurs, rubs , gallops

Lungs: Are clear to auscultation bilaterally with no wheezes, rales or rhonchi

Abdominal exam: Abdomen is soft nontender nondistend ed throughout.

Genitourinary: Negative CVA tenderness bilaterally. No s uprapubic tenderness. No vaginal discharge. No penile discharge.

Musculoskeletal: Full range of motion of upper and lower extremities bilaterall y. No vertebral point tenderness C-spine through L-spine, no crepitus or step -offs no ecchymosis no deformities normal ambulation

Neuro exam : [employer] Autobody Repairer strength are 5 out of 5 bilaterally. Sensorineurally intact
<b r>Lymph: No cervical lymphadenopathy appreciated

Psych: Pa tient is nonverbal. Follows commands. Patient is calm and cooperative in no d istress.</div>
--- OUTSIDE RECORDS SUMMARY | 2022-09-03 16:32 | XMS_ITS ---
:1980 Author Care Team Providers Name Role Phone ROSMERY CROSS MD Primary Care Provider [phone] Allergies Code Code System Name Reaction Severity Status Onset 39562 RxNorm Halazone ? ? Active ? Medications Name Status Start Date Stop Date ? ? Amitiza 24 mcg capsule Active ? Not avail able clonazepam 0.5 mg tablet Active ? Not huma ilable clonazepam 1 mg tablet Active ? Not avail able clotrimazole 1 % topical cream Active ? N ot available famotidine 20 mg tablet Active ? Not avai lable fluoxetine 20 mg capsule Active ? Not huma ilable fluticasone propionate 50 mcg/actuation nasal Active ? Not available spray,suspension lorazepam 1 mg tablet Active ? Not availa ble neomycin 3.5 mg/g-polymyxin B 10,000 unit/g-dexameth 0.1 % Activ e ? Not available eye oint nystatin 100,000 unit/gram topical ointment Active ? Not available omeprazole 20 mg capsule,delayed release Active ? Not available penicillin V potassium 500 mg tablet Active ? Not available polyethylene glycol 3350 17 gram/dose oral powder Active ? Not available propranolol 10 mg tablet Active ? Not huma ilable ranitidine 150 mg tablet Active ? Not huma ilable triamcinolone acetonide 0.1 % dental paste Active ? Not available Problems None recorded. Procedures None recorded. Results Lab Results None recorded. Past Encounters Encounter Date Diagnosis Provider 07/20/2022 Laceration of Lip Arleth Marcano PA : [address] [place] [address], Ph. Social History Tobacco Smoking Status Never Smoker Vaccine List None recorded. Plan of Care Reminders Provider Appointments None recorded. ? ? Lab None recorded. ? ? Referral None recorded. ? ? Procedures None recorded. ? ? Surgeries None recorded. ? ? Imaging None recorded. ? ? Vitals 07/20/2022 01:00PM Established Patient Blood Pressure 97/62 mm[Hg] 11/20/2019 12:25PM New Patient Blood Pressure 110/60 mm[Hg]
[2022-09-03 16:56] LABS: MANUAL DIFF FLAG NO
[2022-09-03 16:58] LABS: Basophils Percent Auto 0.5 % (0-2); Eosinophils Absolute Auto 0.1 X10*3/uL (0.0-0.4); Eosinophils Percent Auto 2.2 % (0-4); Hematocrit 43.4 % (42.0-52.0); Hemoglobin 14.8 g/dl (14.0-18.0); Imm Gran Abs Auto 0.02 X10*3/uL (0.00-0.03); Imm Gran Pct Auto 0.4 % (0.0-0.4); Lymphocytes Absolute Auto 1.6 X10*3/uL (1.2-4.9); Lymphocytes Percent Auto 28.5 % (20-40); Lymphocytes Percent Auto 30.1 % (20-40); Mean Corpuscular HGB Conc 33.6 g/dl (31.0-36.0); Mean Corpuscular Hemoglobin 29.4 pg (27.0-33.0); Mean Corpuscular Volume 87.5 fL (80.0-98.0); Mean Platelet Volume 9.5 fL (9.4-12.4); Monocytes Absolute Auto 0.4 X10*3/uL (0.1-1.2); Monocytes Percent Auto 7.9 % (2-11); Neutrophils Absolute Auto 3.3 x10*3/uL (2.0-8.3); Neutrophils Percent Auto 60.5 % (45-73); PLT CLUMP 1; Platelet Count 172 X10*3/uL (160-400); Red Blood Count 5.03 X10*6/uL (4.60-5.80); Red Cell Distribution Width 12.1 % (11.0-16.0); SCAN SMEAR FLAG 1; White Blood Count 5.5 X10*3/uL (4.8-10.8)
[2022-09-03 17:00] LABS: Basophils Percent Auto 0.6 % (0-2); Eosinophils Absolute Auto 0.1 X10*3/uL (0.0-0.4); Eosinophils Percent Auto 1.9 % (0-4); Hemoglobin 14.8 g/dl (14.0-18.0); Lymphocytes Absolute Auto 1.6 X10*3/uL (1.2-4.9); Mean Corpuscular HGB Conc 34.1 g/dl (31.0-36.0); Mean Corpuscular Hemoglobin 29.7 pg (27.0-33.0); Mean Corpuscular Volume 87.1 fL (80.0-98.0); Mean Platelet Volume 9.9 fL (9.4-12.4); Monocytes Absolute Auto 0.4 X10*3/uL (0.1-1.2); Monocytes Percent Auto 8.1 % (2-11); Neutrophils Absolute Auto 3.1 x10*3/uL (2.0-8.3); Neutrophils Percent Auto 58.9 % (45-73); Red Blood Count 4.98 X10*6/uL (4.60-5.80); Red Cell Distribution Width 12.1 % (11.0-16.0); Venous Blood Gas Refer to POC result; White Blood Count 5.5 X10*3/uL (4.8-10.8)
[2022-09-03 17:01] LABS: VBG Base Excess -1.8 mmol/L; VBG HCO3 20 mmol/L (22-26); VBG pCO2 28 mmHg; VBG pH 7.46 (7.32-7.43); VBG pO2 139 mmHg
[2022-09-03 17:01] LABS: MANUAL DIFF FLAG NO; Platelet Count 172 X10*3/uL (160-400)
[2022-09-03 17:17] LABS: COVID-19 Test Negative (Negative); IDNOW Serial# 16C4AD1C; Troponin-I High Sensitivity < 3.5 ng/L (<3.5-35.0)
[2022-09-03 17:24] LABS: Alanine Aminotransferase 69 U/L (0-40); Albumin Level 4.1 g/dL (3.5-5.0); Alkaline Phosphatase 62 U/L (39-117); Anion Gap 11 (12-20); Aspartate Amino Transferase 33 U/L (5-37); Bilirubin Direct 0.3 mg/dL (0.0-0.5); Bilirubin Total 0.9 mg/dL (0.0-1.0); Blood Urea Nitrogen 17 mg/dL (9-16); Calcium 9.1 mg/dL (8.4-10.2); Carbon Dioxide 23 mmol/L (22-29); Chloride 108 mmol/L (96-108); Creatinine Clr Calc Pharmacy 163.5; Estimated Glomerular Filt Rate > 60; Glucose Random 95 mg/dL (60-115); Magnesium 2.2 mg/dL (1.6-2.6); Potassium 4.2 mmol/L (3.3-5.1); Sodium 138 mmol/L (135-145); Total Protein 6.7 g/dL (6.5-8.0)
--- NOTE | 2022-09-03 17:39 | MHC.EDTECH ---
THIS PCT WAS GETTING LABS OF PT AND NOTICE PT FELT COLD ,UPON CHECKING RECTAL TEMP PT TEMP WAS 95.3 ,DIANN RODRÍGUEZ AND MD NATION AWARE ,MD NATION SAID TO PUT PT ON BEAR HUGGER WHICH THIS PCT DID .
[2022-09-03 17:42] LABS: Influenza A PCR NEGATIVE (Negative); Influenza B PCR NEGATIVE (Negative); Resp Syncy Virus RNA Qual PCR NEGATIVE (Negative); SARS COV2 PCR INHOUSE NEGATIVE (Negative)
[2022-09-03 18:03] LABS: Alanine Aminotransferase 64 U/L (0-40); Alkaline Phosphatase 57 U/L (39-117); Anion Gap 10 (12-20); Aspartate Amino Transferase 30 U/L (5-37); Bilirubin Direct 0.3 mg/dL (0.0-0.5); Bilirubin Total 0.9 mg/dL (0.0-1.0); Blood Urea Nitrogen 17 mg/dL (9-16); Carbon Dioxide 26 mmol/L (22-29); Chloride 106 mmol/L (96-108); Creatinine Clr Calc Pharmacy 173.1; Estimated Glomerular Filt Rate > 60; Ethanol < 10 mg/dL; Glucose Random 96 mg/dL (60-115); Lipase 21 U/L (8-78); Potassium 4.2 mmol/L (3.3-5.1); Sodium 138 mmol/L (135-145); Thyroid Stimulating Hormone 1.26 uIU/mL (0.32-4.0); Total Protein 6.2 g/dL (6.5-8.0)
[2022-09-03 18:09] LABS: Appearance Urine Clear; Color Urine Yellow; Glucose Urine UA Negative (Negative); Leukocyte Esterase Urine Negative (Negative); Nitrite Urine Negative (Negative); Urine Blood Negative (Negative); Urine Ketones Negative (Negative); Urine Protein Negative (Neg-Trace)
--- NOTE | 2022-09-03 18:14 | PC.NURSE ---
patient non verbal . makes eye contact . comes from shelter . mother at bedside . pearrlla . heart rate regular at 59 beats per minute . breathing even and unlabored . lungs clear throughout . skin pink warm and dry . abdomen soft not tender . patients rectal temp 95.3 , applied bear huger . Dr. jackson aware . Iv placed in right A.C . labs sent . Urine obtained by straight cath and sent . patient on surveillance system monitor . Staff member and mother at bedside . Family and patient aware of plan of care .
[2022-09-03 18:16] LABS: Amphetamine Screen Urine Not Detected (Not Detect); Barbiturates, Urine Not Detected (Not Detect); Benzodiazepines Screen Urine Not Detected (Not Detect); Cannabinoid Screen Urine Not Detected (Not Detect); Cocaine Screen Urine Not Detected (Not Detect); Fentanyl, urine Not Detected (Not Detect); Opiate Screen Urine Not Detected (Not Detect); Phencyclidine Screen Urine Not Detected (Not Detect)
--- NOTE | 2022-09-03 21:05 | PC.NURSE ---
RN received call from Luci nurse case consultant from [facility] requesting update on patient status. Luci . Pt mother and [facility] care worker at patient bed side.
--- NOTE | 2022-09-03 21:06 | PM.IMHP ---
History of Present Illness Date of Service: 09/03/22 Chief Complaint: lethargy this is a 42-year-old male with past medical history of autism, nonverbal at baseline who lives at a correction presents to the hospital with reports of lethargy . history is obtained mostly from patient's mother as patient appears to be sleeping as he is snoring, not responding to verbal or painful stimuli. According to the mother, the correction reported the patient woke up was at his baseline which is generally functional, as he walks around independently, feeds himself, dresses himself. he had an appointment with primary care physician, his mother takes him to the appointment but he seems to be progressively getting more and more lethargic and sleepy. By the time he has his appointment with his primary care physician, he is laying on the exam table and not able to participate in his appointment. Therefore his mother took him home, and she reports that he was not waking up therefore ambulance was called and he was brought into the hospital. No reports of acute infection at [facility]. according to the mother patient experienced 2 similar episodes over the past 6 months that lasted about 4 hours and he would spontaneously recover from them. However, this episode has been going on since morning patient does not seem to be recovering. correction personnel at bedside reports no recent changes to patient's health, and mother reports no acute illness. On arrival to the ED patient hemodynamically stable with a blood pressure of 110/59, and temp of 95.3 degrees. Patient placed on Daquan hugger with improvement in his temperature Labs reviewed unremarkable, blood gas showed a pH of 7.46 with no CO2 retention Labs otherwise unremarkable UDS negative, urine negative, viral serology negative, alcohol level negative head CT shows no acute bleed or territory infarct chest x-ray negative Review of Systems Review of Systems: Yes Unobtainable due to mental condition and Unobtainable due to mental status PMFSH Medical History Autism Nonverbal Social History Household Members: Family Housing: Other Housing Other:: halfway Do you presently have visiting nurse or other home services: Yes Alcohol intake: never Patient Tobacco Use Status: Former Tobacco user Smoked in Last 30 Days: No Use of substances other than those prescribed or required for medical reasons: No Currently Displaying Signs/Symptoms of Drug Intoxication Withdrawal: No Any prior treatment program specific to substance use: No Advance Directives: No Advance Directives Information Provided: Yes Recently lost weight without trying: No Nutrition Risks: No Nutritional Risk Meds Allergies Allergy/AdvReac Type Severity Reaction Status Date / Time haloperidol [From Haldol] Allergy Unknown Unknown Verified 09/03/22 15:42 lactose Allergy Unknown Unknown Verified 09/03/22 15:43 Home Medications Medication Instructions Recorded Confirmed Last Taken Type acetaminophen 325 mg tablet 650 mg PO Q6H PRN headache/back 09/03/22 09/03/22 Unknown History pain/fever bacitracin 500 unit/gram topical 1 appl topical Q12H PRN 09/03/22 09/03/22 Unknown History ointment cut/abrasion bisacodyl 5 mg tablet,delayed 5 mg PO DAILY 09/03/22 09/03/22 Unknown History release cetirizine 10 mg tablet (Zyrtec) 10 mg PO DAILY 09/03/22 09/03/22 Unknown History cholecalciferol (vitamin D3) 50 50 mcg PO DAILY 09/03/22 09/03/22 Unknown History mcg (2,000 unit) tablet clonazepam 0.5 mg tablet 1 tab PO DAILY 09/03/22 09/03/22 Unknown History clonazepam 1 mg tablet 1 tab PO DAILY@1500 09/03/22 09/03/22 Unknown History clonazepam 1 mg tablet 2 tab PO BEDTIME 09/03/22 09/03/22 Unknown History dextromethorphan-guaifenesin 5 5 ml PO Q6H PRN Cough 09/03/22 09/03/22 Unknown History mg-100 mg/5 mL oral liquid (Robitussin Cough-Chest Congestion DM) docusate sodium 100 mg capsule 100 mg PO DAILY@1500 09/03/22 09/03/22 Unknown History docusate sodium 100 mg capsule 200 mg PO DAILY 09/03/22 09/03/22 Unknown History (Colace) fluoxetine 20 mg capsule 1 cap PO DAILY 09/03/22 09/03/22 Unknown History fluticasone propionate 50 2 spray intranasal DAILY 09/03/22 09/03/22 Unknown History mcg/actuation nasal spray,suspension lubiprostone 24 mcg capsule 1 cap PO DAILY@1500 09/03/22 09/03/22 Unknown History (Amitiza) melatonin 3 mg tablet 3 mg PO BEDTIME 09/03/22 09/03/22 Unknown History nystatin 100,000 unit/gram topical 1 applic topical Q8H PRN Rash 09/03/22 09/03/22 Unknown History ointment omeprazole 20 mg capsule,delayed 1 cap PO DAILY@1630 09/03/22 09/03/22 Unknown History release polyethylene glycol 3350 17 gram 17 g PO DAILY 09/03/22 09/03/22 Unknown History oral powder packet (Miralax) polyethylene glycol 3350 17 gram 17 g PO DAILY PRN Constipation 09/03/22 09/03/22 Unknown History oral powder packet (Miralax) polyvinyl alcohol 1.4 % eye drops 1 drp ophthalmic (eye) BID 09/03/22 09/03/22 Unknown History (Artificial Tears (polyvinyl alcohol)) propranolol 10 mg tablet 1 tab PO BEDTIME 09/03/22 09/03/22 Unknown History triamcinolone acetonide 0.1 % 1 appl mucous membrane Q8H PRN 09/03/22 09/03/22 Unknown History dental paste mouth sores Physical Exam Vital Signs and Narrative: Vital Signs: Last Vital Signs Temp 97.7 F 09/03/22 20:37 Pulse 64 09/03/22 20:37 Resp 16 09/03/22 20:37 BP 97/47 L 09/03/22 20:37 Pulse Ox 96 09/03/22 20:37 O2 Del Method 09/03/22 20:37 BMI result Body Mass Index 35.5 Const: Other: patient appears to be sleeping, not waking up to his painful stimuli General: cooperative and no acute distress Eyes: Other: pupils reactive General: appearance normal, both eyes and all related structures Resp: Effort & Inspection: normal respiratory effort Cardio: Rate: regular rate Rhythm: regular rhythm GI: Palpation (GI): Soft to palpation Auscultation: normal bowel sounds Skin: General skin exam: no rashes or lesions noted Extrem: General: Yes normal to inspection and Yes no pedal edema Results Labs CBC and Chem 7: 09/03/22 16:49 09/03/22 17:04 Labs: Laboratory Results - last 24 hr 09/03/22 09/03/22 09/03/22 16:05 16:49 16:49 MCV 87.5 MCH 29.4 MCHC 33.6 RDW 12.1 Plt Count 172 MPV 9.5 Immature Gran % (Auto) 0.4 Neut % (Auto) 60.5 Lymph % (Auto) 28.5 [place] % (Auto) 7.9 Eos % (Auto) 2.2 Baso % (Auto) 0.5 Lymph # (Auto) 1.6 [place] # (Auto) 0.4 Eos # (Auto) 0.1 Baso # (Auto) 0.0 Abs Immat Gran (auto) 0.02 Absolute Neuts (auto) 3.3 Absolute Nucleated RBC 0.000 Nucleated RBC % (auto) 0.0 VBG pH VBG pCO2 VBG pO2 VBG HCO3 VBG O2 Saturation VBG Base Excess Anion Gap 11 L Estim Creat Clear Calc 163.5 Estimated GFR > 60 POC Glucose 104 Random Glucose 95 Lactic Acid Calcium 9.1 Magnesium 2.2 Total Bilirubin 0.9 Direct Bilirubin 0.3 AST 33 ALT 69 H Alkaline Phosphatase 62 Troponin I High Sens Total Protein 6.7 Albumin 4.1 Lipase TSH Urine Color Urine Appearance Urine pH Ur Specific [place] Urine Protein Urine Glucose (UA) Urine Ketones Urine Blood Urine Nitrite Ur Leukocyte Esterase Urine Opiates Screen Urine Fentanyl Screen Ur Barbiturates Screen Ur Phencyclidine Scrn Ur Amphetamines Screen U Benzodiazepines Scrn Urine Cocaine Screen U Marijuana (THC) Screen Ethyl Alcohol COVID-19 (BOOM) COVID-19 Clin Com Influenza Type A (PCR) Influenza Type B (PCR) RSV RNA Qual (PCR) SARS-CoV-2 RNA (RT-PCR) 09/03/22 09/03/22 09/03/22 16:49 16:49 16:49 MCV 87.1 MCH 29.7 MCHC 34.1 RDW 12.1 Plt Count 172 MPV 9.9 Immature Gran % (Auto) 0.4 Neut % (Auto) 58.9 Lymph % (Auto) 30.1 [place] % (Auto) 8.1 Eos % (Auto) 1.9 Baso % (Auto) 0.6 Lymph # (Auto) 1.6 [place] # (Auto) 0.4 Eos # (Auto) 0.1 Baso # (Auto) 0.0 Abs Immat Gran (auto) 0.02 Absolute Neuts (auto) 3.1 Absolute Nucleated RBC 0.000 Nucleated RBC % (auto) 0.0 VBG pH VBG pCO2 VBG pO2 VBG HCO3 VBG O2 Saturation VBG Base Excess Anion Gap Estim Creat Clear Calc Estimated GFR POC Glucose Random Glucose Lactic Acid 1.0 Calcium Magnesium Total Bilirubin Direct Bilirubin AST ALT Alkaline Phosphatase Troponin I High Sens < 3.5 Total Protein Albumin Lipase TSH Urine Color Urine Appearance Urine pH Ur Specific [place] Urine Protein Urine Glucose (UA) Urine Ketones Urine Blood Urine Nitrite Ur Leukocyte Esterase Urine Opiates Screen Urine Fentanyl Screen Ur Barbiturates Screen Ur Phencyclidine Scrn Ur Amphetamines Screen U Benzodiazepines Scrn Urine Cocaine Screen U Marijuana (THC) Screen Ethyl Alcohol COVID-19 (BOOM) COVID-19 Clin Com Influenza Type A (PCR) Influenza Type B (PCR) RSV RNA Qual (PCR) SARS-CoV-2 RNA (RT-PCR) 09/03/22 09/03/22 09/03/22 16:49 16:49 16:54 MCV MCH MCHC RDW Plt Count MPV Immature Gran % (Auto) Neut % (Auto) Lymph % (Auto) [place] % (Auto) Eos % (Auto) Baso % (Auto) Lymph # (Auto) [place] # (Auto) Eos # (Auto) Baso # (Auto) Abs Immat Gran (auto) Absolute Neuts (auto) Absolute Nucleated RBC Nucleated RBC % (auto) VBG pH 7.46 H VBG pCO2 28 VBG pO2 139 VBG HCO3 20 L VBG O2 Saturation 100.0 VBG Base Excess -1.8 Anion Gap Estim Creat Clear Calc Estimated GFR POC Glucose Random Glucose Lactic Acid Calcium Magnesium Total Bilirubin Direct Bilirubin AST ALT Alkaline Phosphatase Troponin I High Sens Total Protein Albumin Lipase TSH Urine Color Urine Appearance Urine pH Ur Specific [place] Urine Protein Urine Glucose (UA) Urine Ketones Urine Blood Urine Nitrite Ur Leukocyte Esterase Urine Opiates Screen Urine Fentanyl Screen Ur Barbiturates Screen Ur Phencyclidine Scrn Ur Amphetamines Screen U Benzodiazepines Scrn Urine Cocaine Screen U Marijuana (THC) Screen Ethyl Alcohol COVID-19 (BOOM) Negative COVID-19 Clin Com See Note Influenza Type A (PCR) NEGATIVE Influenza Type B (PCR) NEGATIVE RSV RNA Qual (PCR) NEGATIVE SARS-CoV-2 RNA (RT-PCR) NEGATIVE 09/03/22 09/03/22 09/03/22 17:04 18:01 18:01 MCV MCH MCHC RDW Plt Count MPV Immature Gran % (Auto) Neut % (Auto) Lymph % (Auto) [place] % (Auto) Eos % (Auto) Baso % (Auto) Lymph # (Auto) [place] # (Auto) Eos # (Auto) Baso # (Auto) Abs Immat Gran (auto) Absolute Neuts (auto) Absolute Nucleated RBC Nucleated RBC % (auto) VBG pH VBG pCO2 VBG pO2 VBG HCO3 VBG O2 Saturation VBG Base Excess Anion Gap 10 L Estim Creat Clear Calc 173.1 Estimated GFR > 60 POC Glucose Random Glucose 96 Lactic Acid Calcium 9.0 Magnesium 2.0 Total Bilirubin 0.9 Direct Bilirubin 0.3 AST 30 ALT 64 H Alkaline Phosphatase 57 Troponin I High Sens Total Protein 6.2 L Albumin 4.0 Lipase 21 TSH 1.26 Urine Color Yellow Urine Appearance Clear Urine pH 7.0 Ur Specific [place] 1.010 Urine Protein Negative Urine Glucose (UA) Negative Urine Ketones Negative Urine Blood Negative Urine Nitrite Negative Ur Leukocyte Esterase Negative Urine Opiates Screen Not Detected Urine Fentanyl Screen Not Detected Ur Barbiturates Screen Not Detected Ur Phencyclidine Scrn Not Detected Ur Amphetamines Screen Not Detected U Benzodiazepines Scrn Not Detected Urine Cocaine Screen Not Detected U Marijuana (THC) Screen Not Detected Ethyl Alcohol < 10 COVID-19 (BOOM) COVID-19 Clin Com Influenza Type A (PCR) Influenza Type B (PCR) RSV RNA Qual (PCR) SARS-CoV-2 RNA (RT-PCR) Imaging Radiologist's Impressions: Impressions Chest X-Ray 09/03/22 16:02 IMPRESSION: Low lung volumes. No gross lobar consolidation. Head CT 09/03/22 19:52 IMPRESSION: 1. There are no acute bleeds or territorial infarcts. No masses are demonstrated. Assessment and Plan (1) Hypothermia: Status: Acute (2) Encephalopathy: Status: Acute Plan 42-year-old male with past medical history of autism presents to hospital evidence of encephalopathy # encephalopathy - unclear etiology at this time - no evidence of acute infection at this time although patient hypothermic, blood pressure is soft - UDS negative - urine negative, CT negative, chest x-ray negative - at this time will obtain EEG,as this is the 3rd episode within the last 3 months - neurology consulted - MRI in a.m. # hypothermia - unclear etiology - no clear source of infection - mild evidence of sepsis - negative lactic acid - given soft BP, will treat with broad-spectrum IV antibiotics - follow cultures, can not discontinue antibiotics if cultures negative - continue Daquan hugger DVT prophylaxis: Lovenox Time Spent With Patient Time: Total time managing care of this patient today ____ minutes. Quality Stroke Does the patient have a stroke diagnosis?: No VTE Prior VTE?: No VTE Risk Level:: Medical - moderate - high VTE Device Contraindication: Treatment Not Indicated VTE Drug Contraindication: N/A - Med Ordered
--- OUTSIDE RECORDS SUMMARY | 2022-09-03 21:23 | XMS_ITS ---
:1980 Author Care Team Providers Name Role Phone ROSMERY CROSS MD Primary Care Provider [phone] Allergies Code Code System Name Reaction Severity Status Onset 47237 RxNorm Halazone ? ? Active ? Medications [...] of Lip Arleth Marcano PA : [address] [place] [address], Ph. [phone] Social History Tobacco Smoking Status Never Smoker [...]
--- OUTSIDE RECORDS SUMMARY | 2022-09-03 21:23 | XMS_ITS | Encounter Summary ---
:1980 Author Care Team Providers Name Role Phone Lisa Pritchard MD Primary Care Provider [phone] Reason for Visit Other swollen lip sx [...] Code Code System Name Reaction Severity Onset 72633 RxNorm Halazone ? ? ? Problems None recorded. Procedures None recorded. Vaccine List None recorded. Social History Tobacco Smoking Status Never Smoker Functional Status Unknown. Past Encounters Encounter Date Diagnosis Provider 07/20/2022 Laceration of Lip JOSH Vargas : [address] [place] [address], Ph. History of Present Illness Note: <div>42-year-old male [...] no tenderness, step-offs, or ec chymosis

Skin: [place] warm and dry. 1 cm superficial abrasion [...] no deformities normal ambulation

Neuro exam : Electronic Pagination System Operator strength are 5 out of 5 bilaterally. Sensorineurally intact
<b r>Lymph: No cervical lymphadenopathy appreciated

Psych: Pa tient is nonverbal. Follows commands. Patient is calm and cooperative in no d istress.</div>
[2022-09-03 21:47] LABS: Lactic Acid 0.5 mmol/L (0.5-2.0)
--- NOTE | 2022-09-03 21:47 | PHA.PROG ---
Admission Date/Time: September 03, 2022 21:04 Indication: sepsis Weight in k.2 kg Adjusted body weight in [place] body weight in Kg: Obesity Dosing Indication % IBW: Serum Creatinine - Last 168 Hours 09/03/22 09/03/22 16:49 17:04 Creatinine 0.72 0.68 Estimated CrCl and GFR - Last 168 Hours 09/03/22 09/03/22 16:49 17:04 Estim Creat Clear Calc 163.5 173.1 Estimated GFR > 60 > 60 Vancomycin Loading Dose: 2000 mg Current Vancomycin Dosing Regimen: 1250 mg q12h Vancomycin Monitoring using AUC goal of 400 - 600 range with trough as surrogate marker: 460 Date and Time for next Vancomycin Level to be drawn: 09/05/22 0800 Pharmacist Comments on Vancomycin Plan: Vancomycin dosing will take advantage of [employer] as a clinical decision support tool that uses Bayesian modeling to calculate individual patient's pharmacokinetic parameters and forecast the patient's drug concentration time course with the target goal AUC 24 range of 400 - 600 mg/L/hr.
--- NOTE | 2022-09-03 21:51 | PHA.MEDREC ---
Pharmacy Consult ? Medication Reconciliation Pharmacy has completed the medication reconciliation. PT FROM [facility], LIST OBTAINED
[2022-09-03] MEDS: Enoxaparin Sodium 40 MG/0.4 ML SYRINGE SUBCUT (22:02)
[2022-09-03] MEDS: Piperacillin Sodium/Tazobactam 3.375 GM in 0.9 % Sodium Chloride 50 ML IV (22:02)
--- NOTE | 2022-09-03 23:00 | PC.NURSE ---
Pt's temp has remained steady at 98.2 with Bearhugger applied. Bearhugger removed from pt and pt covered with warm blankets. Will continue monitor pt's temp throughout the night.
--- NOTE | 2022-09-03 23:37 | PC.NURSE ---
Chano will placed on patient r/t core temp decreased to 97.9. Bill continue to monitor.
[2022-09-04] VITALS: BP 126/58; PULSE 98; RESP 16; TEMP 35.6; O2SAT 95
[2022-09-04] MEDS: Piperacillin Sodium/Tazobactam 3.375 GM in 0.9 % Sodium Chloride 50 ML IV ×4 (03:05→21:01)
[2022-09-04] MEDS: 0.9 % Sodium Chloride Flush 3 ML SYRINGE IVFLUSH ×4 (03:05→21:02)
[2022-09-04 04:26] VITALS: BP 116/65; PULSE 90; RESP 18; TEMP 36.7; O2SAT 93
[2022-09-04 06:02] LABS: MANUAL DIFF FLAG NO
[2022-09-04 06:13] LABS: Basophils Percent Auto 0.4 % (0-2); Eosinophils Absolute Auto 0.1 X10*3/uL (0.0-0.4); Hematocrit 37.6 % (42.0-52.0); Hemoglobin 12.7 g/dl (14.0-18.0); Imm Gran Abs Auto 0.02 X10*3/uL (0.00-0.03); Imm Gran Pct Auto 0.4 % (0.0-0.4); Lymphocytes Absolute Auto 2.2 X10*3/uL (1.2-4.9); Lymphocytes Percent Auto 42.5 % (20-40); Mean Corpuscular HGB Conc 33.8 g/dl (31.0-36.0); Mean Corpuscular Hemoglobin 29.7 pg (27.0-33.0); Mean Corpuscular Volume 87.9 fL (80.0-98.0); Mean Platelet Volume 9.8 fL (9.4-12.4); Monocytes Absolute Auto 0.4 X10*3/uL (0.1-1.2); Monocytes Percent Auto 8.2 % (2-11); Neutrophils Absolute Auto 2.4 x10*3/uL (2.0-8.3); Neutrophils Percent Auto 46.5 % (45-73); Platelet Count 153 X10*3/uL (160-400); Red Blood Count 4.28 X10*6/uL (4.60-5.80); Red Cell Distribution Width 12.1 % (11.0-16.0); White Blood Count 5.1 X10*3/uL (4.8-10.8)
[2022-09-04 06:38] LABS: Anion Gap 11 (12-20); Blood Urea Nitrogen 14 mg/dL (9-16); Carbon Dioxide 22 mmol/L (22-29); Chloride 112 mmol/L (96-108); Creatinine Clr Calc Pharmacy 154.9; Estimated Glomerular Filt Rate > 60; Glucose Random 83 mg/dL (60-115); Potassium 3.6 mmol/L (3.3-5.1); Sodium 141 mmol/L (135-145)
[2022-09-04 07:48] VITALS: BP 115/59; PULSE 77; RESP 20; TEMP 37.4; O2SAT 94
--- NOTE | 2022-09-04 09:58 | MHC.CM.PN ---
CM met with Patient and his Mother/Legal Guardian/Patricia at bedside and addressed IMM with them. Patient is from a [facility] and returning there is the goal, once Patient is medically cleared for dc. CM has initiated and will follow for dc planning. Patient has received Pfizer/covid vax x3 and his PCP is Dr. Jacinto Jon.
--- NOTE | 2022-09-04 10:12 | HO.PM.IMPN ---
Subjective Subjective Date of Service: 09/04/22 Review of Systems Follow-up encephalopathy History of nonverbal autism Physical Exam Vital Signs: Vital Signs: Last Vital Signs Temp 99.3 F 09/04/22 07:48 Pulse 77 09/04/22 07:48 Resp 20 09/04/22 07:48 BP 115/59 L 09/04/22 07:48 Pulse Ox 94 09/04/22 07:48 O2 Del Method 09/04/22 07:48 BMI result Body Mass Index 35.5 Appearing in no acute distress lung sounds are clear to auscultation heart regular rate rhythm, clear S1, S2 positive bowel sounds, abdomen is soft, nontender neuro patient is alert, nonverbal but when completely oriented does follow commands Objective Data Active Medications Acetaminophen (Acetaminophen 325 Mg Tablet) 650 mg PO Q6H PRN PRN Reason: Pain, Mild (Pain Scale 1-3) Docusate Sodium (Docusate Sodium 100 Mg Capsule) 100 mg PO DAILY PRN PRN Reason: Constipation Enoxaparin Sodium (Enoxaparin Sodium 40 Mg/0.4 Ml Syringe) 40 mg SUBCUT Q24H [facility] Last Admin: 09/03/22 22:02 Dose: 40 mg Documented By: WILLA Piperacillin Sod/Tazobactam (Sod 3.375 gm/ Sodium Chloride) 50 mls @ 100 mls/hr IV Q6H [facility] Last Infusion: 09/04/22 03:52 Dose: 0 mls/hr Documented By: DAX Vancomycin HCl 1,250 mg/ (Sodium Chloride) 250 mls @ 166.667 mls/hr IV Q12H [facility] Ondansetron HCl (Ondansetron Hcl 4 Mg/2 Ml Vial) 4 mg IVPUSH Q8H PRN PRN Reason: Nausea and Vomiting Pharmacy Consult (Consult Rx Vancomycin Dosing) 1 each MISCELLANE DAILY PRN PRN Reason: Consult order Sodium Chloride (0.9 % Sodium Chloride Flush 3 Ml Syringe) 3 ml IVFLUSH QSHIFT [facility] Last Admin: 09/04/22 03:05 Dose: 3 ml Documented By: DAX Labs CBC & Chem 7: 09/04/22 05:57 09/04/22 05:57 Labs: Laboratory Results - last 24 hr 09/03/22 09/03/22 09/03/22 16:05 16:49 16:49 MCV 87.5 MCH 29.4 MCHC 33.6 RDW 12.1 Plt Count 172 MPV 9.5 Immature Gran % (Auto) 0.4 Neut % (Auto) 60.5 Lymph % (Auto) 28.5 [place] % (Auto) 7.9 Eos % (Auto) 2.2 Baso % (Auto) 0.5 Lymph # (Auto) 1.6 [place] # (Auto) 0.4 Eos # (Auto) 0.1 Baso # (Auto) 0.0 Abs Immat Gran (auto) 0.02 Absolute Neuts (auto) 3.3 Absolute Nucleated RBC 0.000 Nucleated RBC % (auto) 0.0 VBG pH VBG pCO2 VBG pO2 VBG HCO3 VBG O2 Saturation VBG Base Excess Anion Gap 11 L Estim Creat Clear Calc 163.5 Estimated GFR > 60 POC Glucose 104 Random Glucose 95 Lactic Acid Calcium 9.1 Magnesium 2.2 Total Bilirubin 0.9 Direct Bilirubin 0.3 AST 33 ALT 69 H Alkaline Phosphatase 62 Troponin I High Sens Total Protein 6.7 Albumin 4.1 Lipase TSH Urine Color Urine Appearance Urine pH Ur Specific [place] Urine Protein Urine Glucose (UA) Urine Ketones Urine Blood Urine Nitrite Ur Leukocyte Esterase Urine Opiates Screen Urine Fentanyl Screen Ur Barbiturates Screen Ur Phencyclidine Scrn Ur Amphetamines Screen U Benzodiazepines Scrn Urine Cocaine Screen U Marijuana (THC) Screen Ethyl Alcohol COVID-19 (BOOM) COVID-19 Clin Com Influenza Type A (PCR) Influenza Type B (PCR) RSV RNA Qual (PCR) SARS-CoV-2 RNA (RT-PCR) 09/03/22 09/03/22 09/03/22 16:49 16:49 16:49 MCV 87.1 MCH 29.7 MCHC 34.1 RDW 12.1 Plt Count 172 MPV 9.9 Immature Gran % (Auto) 0.4 Neut % (Auto) 58.9 Lymph % (Auto) 30.1 [place] % (Auto) 8.1 Eos % (Auto) 1.9 Baso % (Auto) 0.6 Lymph # (Auto) 1.6 [place] # (Auto) 0.4 Eos # (Auto) 0.1 Baso # (Auto) 0.0 Abs Immat Gran (auto) 0.02 Absolute Neuts (auto) 3.1 Absolute Nucleated RBC 0.000 Nucleated RBC % (auto) 0.0 VBG pH VBG pCO2 VBG pO2 VBG HCO3 VBG O2 Saturation VBG Base Excess Anion Gap Estim Creat Clear Calc Estimated GFR POC Glucose Random Glucose Lactic Acid 1.0 Calcium Magnesium Total Bilirubin Direct Bilirubin AST ALT Alkaline Phosphatase Troponin I High Sens < 3.5 Total Protein Albumin Lipase TSH Urine Color Urine Appearance Urine pH Ur Specific [place] Urine Protein Urine Glucose (UA) Urine Ketones Urine Blood Urine Nitrite Ur Leukocyte Esterase Urine Opiates Screen Urine Fentanyl Screen Ur Barbiturates Screen Ur Phencyclidine Scrn Ur Amphetamines Screen U Benzodiazepines Scrn Urine Cocaine Screen U Marijuana (THC) Screen Ethyl Alcohol COVID-19 (BOOM) COVID-19 Clin Com Influenza Type A (PCR) Influenza Type B (PCR) RSV RNA Qual (PCR) SARS-CoV-2 RNA (RT-PCR) 09/03/22 09/03/22 09/03/22 16:49 16:49 16:54 MCV MCH MCHC RDW Plt Count MPV Immature Gran % (Auto) Neut % (Auto) Lymph % (Auto) [place] % (Auto) Eos % (Auto) Baso % (Auto) Lymph # (Auto) [place] # (Auto) Eos # (Auto) Baso # (Auto) Abs Immat Gran (auto) Absolute Neuts (auto) Absolute Nucleated RBC Nucleated RBC % (auto) VBG pH 7.46 H VBG pCO2 28 VBG pO2 139 VBG HCO3 20 L VBG O2 Saturation 100.0 VBG Base Excess -1.8 Anion Gap Estim Creat Clear Calc Estimated GFR POC Glucose Random Glucose Lactic Acid Calcium Magnesium Total Bilirubin Direct Bilirubin AST ALT Alkaline Phosphatase Troponin I High Sens Total Protein Albumin Lipase TSH Urine Color Urine Appearance Urine pH Ur Specific [place] Urine Protein Urine Glucose (UA) Urine Ketones Urine Blood Urine Nitrite Ur Leukocyte Esterase Urine Opiates Screen Urine Fentanyl Screen Ur Barbiturates Screen Ur Phencyclidine Scrn Ur Amphetamines Screen U Benzodiazepines Scrn Urine Cocaine Screen U Marijuana (THC) Screen Ethyl Alcohol COVID-19 (BOOM) Negative COVID-19 Clin Com See Note Influenza Type A (PCR) NEGATIVE Influenza Type B (PCR) NEGATIVE RSV RNA Qual (PCR) NEGATIVE SARS-CoV-2 RNA (RT-PCR) NEGATIVE 09/03/22 09/03/22 09/03/22 17:04 18:01 18:01 MCV MCH MCHC RDW Plt Count MPV Immature Gran % (Auto) Neut % (Auto) Lymph % (Auto) [place] % (Auto) Eos % (Auto) Baso % (Auto) Lymph # (Auto) [place] # (Auto) Eos # (Auto) Baso # (Auto) Abs Immat Gran (auto) Absolute Neuts (auto) Absolute Nucleated RBC Nucleated RBC % (auto) VBG pH VBG pCO2 VBG pO2 VBG HCO3 VBG O2 Saturation VBG Base Excess Anion Gap 10 L Estim Creat Clear Calc 173.1 Estimated GFR > 60 POC Glucose Random Glucose 96 Lactic Acid Calcium 9.0 Magnesium 2.0 Total Bilirubin 0.9 Direct Bilirubin 0.3 AST 30 ALT 64 H Alkaline Phosphatase 57 Troponin I High Sens Total Protein 6.2 L Albumin 4.0 Lipase 21 TSH 1.26 Urine Color Yellow Urine Appearance Clear Urine pH 7.0 Ur Specific [place] 1.010 Urine Protein Negative Urine Glucose (UA) Negative Urine Ketones Negative Urine Blood Negative Urine Nitrite Negative Ur Leukocyte Esterase Negative Urine Opiates Screen Not Detected Urine Fentanyl Screen Not Detected Ur Barbiturates Screen Not Detected Ur Phencyclidine Scrn Not Detected Ur Amphetamines Screen Not Detected U Benzodiazepines Scrn Not Detected Urine Cocaine Screen Not Detected U Marijuana (THC) Screen Not Detected Ethyl Alcohol < 10 COVID-19 (BOOM) COVID-19 Clin Com Influenza Type A (PCR) Influenza Type B (PCR) RSV RNA Qual (PCR) SARS-CoV-2 RNA (RT-PCR) 09/03/22 09/04/22 09/04/22 21:27 05:57 05:57 MCV 87.9 MCH 29.7 MCHC 33.8 RDW 12.1 Plt Count 153 L MPV 9.8 Immature Gran % (Auto) 0.4 Neut % (Auto) 46.5 Lymph % (Auto) 42.5 H [place] % (Auto) 8.2 Eos % (Auto) 2.0 Baso % (Auto) 0.4 Lymph # (Auto) 2.2 [place] # (Auto) 0.4 Eos # (Auto) 0.1 Baso # (Auto) 0.0 Abs Immat Gran (auto) 0.02 Absolute Neuts (auto) 2.4 Absolute Nucleated RBC 0.000 Nucleated RBC % (auto) 0.0 VBG pH VBG pCO2 VBG pO2 VBG HCO3 VBG O2 Saturation VBG Base Excess Anion Gap 11 L Estim Creat Clear Calc 154.9 Estimated GFR > 60 POC Glucose Random Glucose 83 Lactic Acid 0.5 Calcium 8.0 L D Magnesium Total Bilirubin Direct Bilirubin AST ALT Alkaline Phosphatase Troponin I High Sens Total Protein Albumin Lipase TSH Urine Color Urine Appearance Urine pH Ur Specific [place] Urine Protein Urine Glucose (UA) Urine Ketones Urine Blood Urine Nitrite Ur Leukocyte Esterase Urine Opiates Screen Urine Fentanyl Screen Ur Barbiturates Screen Ur Phencyclidine Scrn Ur Amphetamines Screen U Benzodiazepines Scrn Urine Cocaine Screen U Marijuana (THC) Screen Ethyl Alcohol COVID-19 (BOOM) COVID-19 Clin Com Influenza Type A (PCR) Influenza Type B (PCR) RSV RNA Qual (PCR) SARS-CoV-2 RNA (RT-PCR) Assessment and Plan (1) Hypothermia: Status: Acute (2) Encephalopathy: Status: Acute Plan 2-year-old male with past medical history of autism presents to hospital evidence of encephalopathy Encephalopathy Unknown etiology at this time Found to be hypothermic initially, temperature up with warming blanket No evidence of acute infection, UA negative, chest CT negative Will obtain EEG for question of seizure episode Neurology consulted MRI Hypothermia. Initially 95.3 Unknown etiology at this time and no clear infectious source Will treat with broad-spectrum antibiotics for now Follow urine cultures Resolved with warming blanket Mental health Continue home medications History of autism Nonverbal, lives in a fdc, mother is very involved in his care GERD Continue PPI DVT prophylaxis: Adarsh Attending Dr. Elder Full code Time Spent With Patient Time: Total time managing care of this patient today ____ minutes. Quality Stroke Does the patient have a stroke diagnosis?: No VTE Prior VTE?: No VTE Risk Level:: Medical - moderate - high VTE Device Contraindication: Treatment Not Indicated VTE Drug Contraindication: N/A - Med Ordered
--- NOTE | 2022-09-04 11:54 | P.CNNE_ITS ---
History of Present Illness Data of Consult Service Date: 09/04/22 Primary Care Provider: Jacinto Jon MD HPI Reason for consult: Decreased responsiveness. Baseline severe autistic disorder [facility] This is a 42-year-old male with h/o severe autism, nonverbal at baseline? who lives in a nursing home presents to the hospital with reports of lethargy and decreased responsiveness. The nursing home reported that the patient woke up at his baseline which is generally functional,? as he walks around independently, feeds himself, dresses himself.? He had an appointment with primary care physician, his mother takes him to the appointment but he became progressively more lethargic and sleepy.?He is laying on the exam table and not able to participate in his appointment.?He was not waking up therefore he was brought into the hospital by ambulance.? No reports of acute infection at residential. ?According to the mother patient experienced 2 similar episodes over the past 6 months that lasted about 4 hours and he would spontaneously recover from them.? However, this episode has been going on since morning patient does not seem to be recovering. No recent changes to patient's health, meds or acute illness.? He is hemodynamically stable with a blood pressure of 110/59, and temp of 95.3 degrees. Patient placed on Daquan hugger with improvement in his temperature Labs reviewed unremarkable. UDS negative, urine negative, viral serology negative, alcohol level negative ?head CT shows no acute bleed or territory infarct Review of Systems Review of Systems: Follow-up encephalopathy History of nonverbal autism Yes Unobtainable due to mental condition and Unobtainable due to mental status PMF Past Medical History Medical History Autism Nonverbal Social History Social History Household Members: Family Housing: Other Housing Other:: shelter Do you presently have visiting nurse or other home services: Yes Alcohol intake: never Patient Tobacco Use Status: Former Tobacco user Smoked in Last 30 Days: No Use of substances other than those prescribed or required for medical reasons: No Currently Displaying Signs/Symptoms of Drug Intoxication Withdrawal: No Any prior treatment program specific to substance use: No Advance Directives: No Advance Directives Information Provided: Yes Recently lost weight without trying: No Nutrition Risks: No Nutritional Risk service: No Current occupational status: disabled Meds Allergies Allergy/AdvReac Type Severity Reaction Status Date / Time haloperidol [From Haldol] Allergy Unknown Unknown Verified 09/03/22 15:42 lactose Allergy Unknown Unknown Verified 09/03/22 15:43 Active Medications: Current Medications Acetaminophen (Acetaminophen 325 Mg Tablet) 650 mg PO Q6H PRN PRN Reason: Pain, Mild (Pain Scale 1-3) Docusate Sodium (Docusate Sodium 100 Mg Capsule) 100 mg PO DAILY PRN PRN Reason: Constipation Enoxaparin Sodium (Enoxaparin Sodium 40 Mg/0.4 Ml Syringe) 40 mg SUBCUT Q24H [facility] Last Admin: 09/03/22 22:02 Dose: 40 mg Piperacillin Sod/Tazobactam (Sod 3.375 gm/ Sodium Chloride) 50 mls @ 100 mls/hr IV Q6H [facility] Last Infusion: 09/04/22 11:36 Dose: Infused Vancomycin HCl 1,250 mg/ (Sodium Chloride) 250 mls @ 166.667 mls/hr IV Q12H [facility] Ondansetron HCl (Ondansetron Hcl 4 Mg/2 Ml Vial) 4 mg IVPUSH Q8H PRN PRN Reason: Nausea and Vomiting Pharmacy Consult (Consult Rx Vancomycin Dosing) 1 each MISCELLANE DAILY PRN PRN Reason: Consult order Sodium Chloride (0.9 % Sodium Chloride Flush 3 Ml Syringe) 3 ml IVFLUSH QSHIFT [facility] Last Admin: 09/04/22 10:27 Dose: 3 ml Home Medications Medication Instructions Recorded Confirmed Last Taken Type acetaminophen 325 mg tablet 650 mg PO Q6H PRN headache/back 09/03/22 09/03/22 Unknown History pain/fever bacitracin 500 unit/gram topical 1 appl topical Q12H PRN 09/03/22 09/03/22 U nknown History ointment cut/abrasion bisacodyl 5 mg tablet,delayed 5 mg PO DAILY 09/03/22 09/03/22 Unknown History release cetirizine 10 mg tablet (Zyrtec) 10 mg PO DAILY 09/03/22 09/03/22 Unknown History cholecalciferol (vitamin D3) 50 50 mcg PO DAILY 09/03/22 09/03/22 Unknown Hist ory mcg (2,000 unit) tablet clonazepam 0.5 mg tablet 1 tab PO DAILY 09/03/22 09/03/22 Unknown History clonazepam 1 mg tablet 1 tab PO DAILY@1500 09/03/22 09/03/22 Unknown History clonazepam 1 mg tablet 2 tab PO BEDTIME 09/03/22 09/03/22 Unknown History dextromethorphan-guaifenesin 5 5 ml PO Q6H PRN Cough 09/03/22 09/03/22 Unknown History mg-100 mg/5 mL oral liquid (Robitussin Cough-Chest Congestion DM) docusate sodium 100 mg capsule 100 mg PO DAILY@1500 09/03/22 09/03/22 Unknown History docusate sodium 100 mg capsule 200 mg PO DAILY 09/03/22 09/03/22 Unknown History (Colace) fluoxetine 20 mg capsule 1 cap PO DAILY 09/03/22 09/03/22 Unknown History fluticasone propionate 50 2 spray intranasal DAILY 09/03/22 09/03/22 Unknown History mcg/actuation nasal spray,suspension lubiprostone 24 mcg capsule 1 cap PO DAILY@1500 09/03/22 09/03/22 Unknown History (Amitiza) melatonin 3 mg tablet 3 mg PO BEDTIME 09/03/22 09/03/22 Unknown History nystatin 100,000 unit/gram topical 1 applic topical Q8H PRN Rash 09/03/22 09/03/22 Unknown History ointment omeprazole 20 mg capsule,delayed 1 cap PO DAILY@1630 09/03/22 09/03/22 Unknown History release polyethylene glycol 3350 17 gram 17 g PO DAILY 09/03/22 09/03/22 Unknown History oral powder packet (Miralax) polyethylene glycol 3350 17 gram 17 g PO DAILY PRN Constipation 09/03/22 09/03/22 Unknown History oral powder packet (Miralax) polyvinyl alcohol 1.4 % eye drops 1 drp ophthalmic (eye) BID 09/03/22 09/03/22 Unknown History (Artificial Tears (polyvinyl alcohol)) propranolol 10 mg tablet 1 tab PO BEDTIME 09/03/22 09/03/22 Unknown History triamcinolone acetonide 0.1 % 1 appl mucous membrane Q8H PRN 09/03/22 09/03/22 Unknown History dental paste mouth sores Physical Exam Vital Signs: Vital Signs: Last Vital Signs Temp 99.3 F 09/04/22 07:48 Pulse 77 09/04/22 07:48 Resp 20 09/04/22 07:48 BP 115/59 L 09/04/22 07:48 Pulse Ox 94 09/04/22 07:48 O2 Del Method 09/04/22 07:48 BMI result Body Mass Index 35.5 Const: Other: patient appears to be sleeping, not waking up to his painful stimuli General: cooperative and no acute distress Eyes: Other: pupils reactive General: appearance normal, both eyes and all related stru ctures Resp: Effort & Inspection: normal respiratory effort Cardio: Rate: regular rate Rhythm: regular rhythm GI: Palpation (GI): Soft to palpation Auscultation: normal bowel sounds Skin: General skin exam: no rashes or lesions noted Neuro: Other: limited cooperation. Neck supple.. Non focal exam. Extrem: General: Yes normal to inspection and Yes no pedal edema Results Labs CBC & Chem 7: 09/04/22 05:57 09/04/22 05:57 Labs: Short CBC 09/03/22 09/03/22 09/04/22 Range/Units 16:49 16:49 05:57 WBC 5.5 5.5 5.1 (4.8-10.8) X10*3/uL Hgb 14.8 14.8 12.7 L (14.0-18.0) g/dl Hct 44.0 43.4 37.6 L (42.0-52.0) % Plt Count 172 172 153 L (160-400) X10*3/uL BMP 09/03/22 09/03/22 09/04/22 16:49 17:04 05:57 Sodium 138 138 141 Potassium 4.2 4.2 3.6 Chloride 108 106 112 H Carbon Dioxide 23 26 22 BUN 17 H 17 H 14 Creatinine 0.72 0.68 0.76 Calcium 9.1 9.0 8.0 L D Liver Function 09/03/22 09/03/22 Range/Units 16:49 17:04 Total Bilirubin 0.9 0.9 (0.0-1.0) mg/dL Direct Bilirubin 0.3 0.3 (0.0-0.5) mg/dL AST 33 30 (5-37) U/L ALT 69 H 64 H (0-40) U/L Alkaline Phosphatase 62 57 (39-117) U/L Albumin 4.1 4.0 (3.5-5.0) g/dL Urine 09/03/22 Range/Units 18:01 Urine Color Yellow Urine Appearance Clear Urine pH 7.0 (5.0-9.0) Ur Specific [place] 1.010 (1.005-1.025) Urine Protein Negative (Neg-Trace) mg/dL Urine Glucose (UA) Negative (Negative) mg/dL Assessment and Plan (1) Hypothermia: Status: Acute (2) Encephalopathy: Status: Acute EEG, TSH, T4, ammonia. MRI brain pending Plan 2-year-old male with past medical history of autism presents to hospital evidence of encephalopathy Encephalopathy Unknown etiology at this time Found to be hypothermic initially, temperature up with warming blanket No evidence of acute infection, UA negative, chest CT negative Will obtain EEG for question of seizure episode Neurology consulted MRI Hypothermia. Initially 95.3 Unknown etiology at this time and no clear infectious source Will treat with broad-spectrum antibiotics for now Follow urine cultures Resolved with warming blanket Mental health Continue home medications History of autism Nonverbal, lives in a nursing home, mother is very involved in his care GERD Continue PPI DVT prophylaxis: Adarsh Attending Dr. Elder Full code Time Spent With Patient Time: Total time managing care of this patient today ____ minutes. Procedures Date of Service Date of Service: 09/04/22
[2022-09-04 11:58] VITALS: BP 122/58; PULSE 79; RESP 20; TEMP 36.6; O2SAT 95
[2022-09-04] MEDS: vancomycin HCL 1,250 MG in 0.9 % Sodium Chloride 250 ML 166.67 MG IV ×2 (12:44→22:22)
[2022-09-04 15:42] VITALS: BP 133/63; PULSE 90; RESP 19; TEMP 36.7; O2SAT 95
--- NOTE | 2022-09-04 18:17 | PM.NEUROPN ---
Subjective Subjective Date of Service: 09/04/22 Interval History: he has improved but not back to baseline. Critical Care Time (minutes): 0 Comment: his MRI can be cancelled. i would recommend reducun his Clonazepam by 0.5mg every 2 wks and get him down to 1mg hs and 0.5mg prn qd for agitation. Physical Exam Vital Signs: Vital Signs: Last Vital Signs Temp 98.0 F 09/04/22 15:42 Pulse 90 09/04/22 15:42 Resp 19 09/04/22 15:42 BP 133/63 09/04/22 15:42 Pulse Ox 95 09/04/22 15:42 O2 Del Method 09/04/22 15:42 BMI result Body Mass Index 35.5 Const: Other: patient appears to be sleeping, not waking up to his painful stimuli General: cooperative and no acute distress Eyes: Other: pupils reactive General: appearance normal, both eyes and all related structures Resp: Effort & Inspection: normal respiratory effort Cardio: Rate: regular rate Rhythm: regular rhythm GI: Palpation (GI): Soft to palpation Auscultation: normal bowel sounds Skin: General skin exam: no rashes or lesions noted Neuro: Other: limited cooperation. Neck supple.. Non focal exam. Extrem: General: Yes normal to inspection and Yes no pedal edema Objective Data Labs CBC & Chem 7: 09/04/22 05:57 09/04/22 05:57 Labs: Laboratory Results - last 24 hr 09/03/22 09/04/22 09/04/22 21:27 05:57 05:57 WBC 5.1 RBC 4.28 L Hgb 12.7 L Hct 37.6 L MCV 87.9 MCH 29.7 MCHC 33.8 RDW 12.1 Plt Count 153 L MPV 9.8 Immature Gran % (Auto) 0.4 Neut % (Auto) 46.5 Lymph % (Auto) 42.5 H [place] % (Auto) 8.2 Eos % (Auto) 2.0 Baso % (Auto) 0.4 Lymph # (Auto) 2.2 [place] # (Auto) 0.4 Eos # (Auto) 0.1 Baso # (Auto) 0.0 Abs Immat Gran (auto) 0.02 Absolute Neuts (auto) 2.4 Absolute Nucleated RBC 0.000 Nucleated RBC % (auto) 0.0 Sodium 141 Potassium 3.6 Chloride 112 H Carbon Dioxide 22 Anion Gap 11 L BUN 14 Creatinine 0.76 Estim Creat Clear Calc 154.9 Estimated GFR > 60 Random Glucose 83 Lactic Acid 0.5 Calcium 8.0 L D Progress Note: A&P Assessment and plan (1) Hypothermia: Status: Acute (2) Encephalopathy: Status: Acute Assessment and Plan: EEG, TSH, T4, ammonia. MRI brain pending Plan 2-year-old male with past medical history of autism presents to hospital evidence of encephalopathy Encephalopathy Unknown etiology at this time Found to be hypothermic initially, temperature up with warming blanket No evidence of acute infection, UA negative, chest CT negative Will obtain EEG for question of seizure episode Neurology consulted MRI Hypothermia. Initially 95.3 Unknown etiology at this time and no clear infectious source Will treat with broad-spectrum antibiotics for now Follow urine cultures Resolved with warming blanket Mental health Continue home medications History of autism Nonverbal, lives [place] [facility] [place], mother is very involved in his care GERD Continue PPI DVT prophylaxis: Adarsh Attending Dr. Elder Full code Time Spent With Patient Time: Total time managing care of this patient today ____ minutes. Procedures Date of Service Date of Service: 09/04/22 Quality Stroke Does the patient have a stroke diagnosis?: No VTE Prior VTE?: No VTE Risk Level:: Medical - moderate - high VTE Device Contraindication: Treatment Not Indicated VTE Drug Contraindication: N/A - Med Ordered
[2022-09-04 19:30] VITALS: BP 121/55; PULSE 85; RESP 19; TEMP 36.4; O2SAT 93
[2022-09-04] MEDS: Propranolol HCL 10 MG TABLET PO (21:00)
[2022-09-04] MEDS: Melatonin 3 MG TABLET PO (21:00)
[2022-09-04] MEDS: clonazePAM 1 MG TABLET 2 MG PO (21:00)
[2022-09-04] MEDS: Enoxaparin Sodium 40 MG/0.4 ML SYRINGE SUBCUT (21:01)
[2022-09-04] MEDS: Artificial Tears 15 ML DROPS 1 DROP EYE-BOTH (21:01)
[2022-09-05] VITALS: BP 99/60; PULSE 64; RESP 17; TEMP 36.7; O2SAT 97
[2022-09-05 04:00] VITALS: BP 107/53; PULSE 54; RESP 17; TEMP 36.6; O2SAT 94
[2022-09-05] MEDS: Piperacillin Sodium/Tazobactam 3.375 GM in 0.9 % Sodium Chloride 50 ML IV (04:48)
[2022-09-05 08:00] VITALS: BP 127/83; PULSE 100; RESP 14; TEMP 36.8; O2SAT 97
[2022-09-05] MEDS: Docusate Sodium 100 MG CAPSULE 200 MG PO (08:22)
[2022-09-05] MEDS: clonazePAM 0.5 MG TABLET PO (08:22)
[2022-09-05] MEDS: 0.9 % Sodium Chloride Flush 3 ML SYRINGE IVFLUSH (08:22)
[2022-09-05] MEDS: FLUoxetine HCl 20 MG CAPSULE PO (08:23)
[2022-09-05] MEDS: Cholecalciferol (Vitamin D3) 25 MCG TABLET 50 MCG PO (08:23)
[2022-09-05] MEDS: bisacodyL 5 MG TABLET.DR PO (08:23)
[2022-09-05] MEDS: Loratadine 10 MG TABLET PO (08:23)
[2022-09-05 09:13] LABS: Creatinine Clr Calc Pharmacy 152.9; Estimated Glomerular Filt Rate > 60
[2022-09-05 09:20] LABS: Vancomycin Trough 10.8 mcg/mL (10.0-20.0)
--- NOTE | 2022-09-05 09:38 | HE.PHANOTE ---
Re Vanco dosing: Increased dosing to 1500 q12 hours due to trough being low and AUC not expected to reach 400 on 1250 q12 dosing. With increase to 1500 q12, expected AUC is 426 after next dose. Will recheck trough 12/15 before morning dose.
[2022-09-05] MEDS: Artificial Tears 15 ML DROPS 1 DROP EYE-BOTH (10:03)
[2022-09-05] MEDS: Fluticasone Propionate Nasal 16 GM SPRAY 2 SPRAY NOSTRIL-B (10:03)
[2022-09-05] MEDS: polyethylene glycoL 3350 17 GM POWD.PACK PO (10:03)
--- NOTE | 2022-09-05 10:41 | PM.DS ---
DS: Providers Provider Date of Service: 09/05/22 Date of admission: 09/03/22 21:04 Date of discharge: 09/05/22 Primary care physician: Jacinto Jon MD Consults: 09/03/22 21:51 Consult to Neurology Routine Consulting Provider: [facility] Reason for consultation: encephalopathy Has provider been notified: No DS: Diagnosis Discharge Diagnosis (1) Hypothermia: Status: Acute (2) Encephalopathy: Status: Acute DS: Summary Hospital Course Hospital Course: 42-year-old male with past medical history of autism, nonverbal at baseline? who lives at a [facility]way presents to the hospital with reports of lethargy . ? history is obtained mostly from patient's mother as patient appears to be sleeping as he is snoring, not responding to verbal or painful stimuli.? According to the mother, the half-way reported the patient woke up was at his baseline which is generally functional,? as he walks around independently, feeds himself, dresses himself.? he had an appointment with primary care physician, his mother takes him to the appointment but he seems to be progressively getting more and more lethargic and sleepy.? By the time he has his appointment with his primary care physician, he is laying on the exam table and not able to participate in his appointment.? Therefore his mother took him home, and she reports that he was not waking up therefore ambulance was called and he was brought into the hospital.? No reports of acute infection at senior care. ?according to the mother patient experienced 2 similar episodes over the past 6 months that lasted about 4 hours and he would spontaneously recover from them.? However, this episode has been going on since morning patient does not seem to be recovering. ?half-way personnel at bedside reports no recent changes to patient's health, and mother reports no acute illness.? On arrival to the ED patient hemodynamically stable with a blood pressure of 110/59, and temp of 95.3 degrees. Patient placed on Daquan hugger with improvement in his temperature Labs reviewed unremarkable, blood gas showed a pH of 7.46 with no CO2 retention Labs otherwise unremarkable UDS negative, urine negative, viral serology negative, alcohol level negative Hospital course Admitted to general medical floor. Subsequent cultures and studies failed to demonstrate an acute focus for his change in mental status. He was seen in consultation by Neurology and who felt that clonazepam should be tapered as ordered. Discussed with mother who agrees that this can be done in outpatient setting and wishes to take patient home. He will be discharge back to half-way and resume previous support services Time Spent with Patient Time attestation: Total time managing care of this patient today ____ minutes. Discharge coordination time: Greater than 30 minutes Quality: Safe Use of Opioids Does Pt have an Active Cancer Diagnosis on the Problem List?: No Quality: Stroke Does the patient have a stroke diagnosis?: No Physical Exam Vital Signs: Vital Signs: Last Vital Signs Temp 98.3 F 09/05/22 08:00 Pulse 100 09/05/22 08:00 Resp 14 09/05/22 08:00 BP 127/83 09/05/22 08:00 Pulse Ox 97 09/05/22 08:00 O2 Del Method 09/05/22 08:00 BMI result Body Mass Index 35.5 Const: Other: Awake nonverbal Resp: Other: Clear to auscultation bilaterally no rales rhonchi wheezes Cardio: Other: No S4; positive S1-S2; no S3 murmurs rubs or gallops GI: Other: Soft nontender nondistended normoactive bowel sounds Neuro: Other: Nonverbal at base line per mother Extrem: Other: No edema bilaterally DS: Data Data Completed and Pending Labs on day of discharge: Laboratory Results - last 24 hr 09/05/22 09/05/22 08:46 08:46 Creatinine 0.77 Estim Creat Clear Calc 152.9 Estimated GFR > 60 Vancomycin Trough 10.8 Preliminary micro results at discharge 09/03/22 17:04 Blood Culture - Preliminary Blood - Venous No growth after 24 hours. 09/03/22 16:49 Blood Culture - Preliminary Blood - Venous No growth after 24 hours. Discharge Plan Discharge Anticipated Discharge Date/Time: 09/05/22 10:43 Patient Disposition: Home Health Service Discharge Diagnosis: Metabolic Encephalopathy Referrals: Jacinto Jon MD [Primary Care Provider] - 1 Week Discharge Medications: Continued acetaminophen 325 mg Tablet 650 mg PO Q6H PRN (Reason: headache/back pain/fever) docusate sodium 100 mg Capsule 100 mg PO DAILY@1500 fluticasone propionate 50 mcg/actuation spray,suspension 2 spray intranasal DAILY polyethylene glycol 3350 [Miralax] 17 gram Powder In Packet 17 g PO DAILY PRN (Reason: Constipation) polyethylene glycol 3350 [Miralax] 17 gram Powder In Packet 17 g PO DAILY cetirizine [Zyrtec] 10 mg Tablet 10 mg PO DAILY nystatin 100,000 unit/gram ointment 1 applic topical Q8H PRN (Reason: Rash) polyvinyl alcohol [Artificial Tears (polyvin alc)] 1.4 % Drops 1 drp OPHTHALMIC (EYE) BID clonazepam 0.5 mg tablet 1 tab PO DAILY clonazepam 1 mg tablet 2 tab PO BEDTIME clonazepam 1 mg tablet 1 tab PO DAILY@1500 bacitracin 500 unit/gram Ointment 1 appl TOPICAL Q12H PRN (Reason: cut/abrasion) melatonin 3 mg Tablet 3 mg PO BEDTIME propranolol 10 mg tablet 1 tab PO BEDTIME triamcinolone acetonide 0.1 % paste 1 appl mucous membrane Q8H PRN (Reason: mouth sores) docusate sodium [Colace] 100 mg Capsule 200 mg PO DAILY omeprazole 20 mg capsule,delayed release(DR/EC) 1 cap PO DAILY@1630 bisacodyl 5 mg Tablet,Delayed Release (Dr/Ec) 5 mg PO DAILY Robitussin Cough-Chest Kelvin DM 5-100 mg/5 mL Liquid 5 ml PO Q6H PRN (Reason: Cough) fluoxetine 20 mg capsule 1 cap PO DAILY lubiprostone [Amitiza] 24 mcg capsule 1 cap PO DAILY@1500 cholecalciferol (vitamin D3) 50 mcg (2,000 unit) Tablet 50 mcg PO DAILY Discharge Orders: Discharge Order (Routine); Ordered 09/05/22 Ordered By: Taras Alberto Diet: Advance to usual diet Activity on Discharge: As tolerated Stand Alone Forms: Patient Portal Discharge page Care Plan Goals: Continue all pre-hospital therapies Health Concerns: Neurology recommend reduction of his Clonazepam by 0.5mg every 2 wks and get him down to 1mg hs and 0.5mg prn qd for agitation. This can not be achieved by outpatient providers Plan of Treatment: Follow-up with PCP psych as scheduled Assessment: See discharge summary
--- NOTE | 2022-09-05 10:44 | P.F2F_ITS ---
Service Date Service Date: 09/05/22 Encounter Date of encounter: 09/05/22 Encounter: Acute hospitalization Reasons for Services Signs and symptoms assessed: Mild mental status changes attributed to metabolic encephalopathy secondary to medication Reason for senior care: neurological assessment and medication management Homebound: Leaving the home is medically contraindicated at this time without the asist of a device and/or another person due th the listed conditions above and below. Reason homebound: unsteady gait / fall risk, cognitively impaired / unsafe and unable to drive Certification: Based on the above findings, I certify that this patient is confined to the home and needs intermittent senior care care, physical therapy and/or speech therapy, or continues to need occupational therapy. The patient is under my care, and I have initiated the establishment of the plan of care. The patient will be followed by a physician who will periodically review the plan of care. Time Spent With Patient Time: Total time managing care of this patient today ___30_ minutes.
--- NOTE | 2022-09-05 11:11 | MHC.CM.PN ---
Patient has been medically cleared for [facility] today. TODD spoke with Jail RN/Luci @ [phone] and provided [facility] contact # so that the two RNs could discuss medication related questions that Luci has. Luci has indicated that a Jail staff member should be here now and should be able to provide transport to home. Last IMM addressed yesterday.Patient's Mother/Legal Guardian is here, aware of and in agreement with the dc plan.
== END 2022-09-05 11:00 | disposition home or self-care (01) | DRG 92 ==
LOC: HO.ED 21:19 → HO.EDOVER 21:22 → HO.IMC 23:37
PROVIDERS: Nurse Practitioner Family; Admitting Provider Internal Medicine; Emergency Provider Emergency Medicine; PCP Internal Medicine; Visit Provider Hospitalist
DX: G92.8 Other toxic encephalopathy (principal); F84.0 Autistic disorder; T42.4X5A Adverse effect of benzodiazepines, initial encounter; R68.0 Hypothermia, not associated with low environmental temperature; K21.9 Gastro-esophageal reflux disease without esophagitis; Z20.822 Contact with and (suspected) exposure to COVID-19; Z87.891 Personal history of nicotine dependence; Z79.899 Other long term (current) drug therapy
CPT/HCPCS: 0241U; 36415; 70450; 70553; 71045; 80048; 80076; 80202; 80307; 81003; 82077; 82565; 82803; 82947; 83605; 83690; 83735; 84443; 84484; 85025; 87040; 87635; 93005; 99285; J1650; J2543; J3370

== ENCOUNTER 2024-03-17 11:04 | Outpatient (AMB) | payer MEDICARE, OTHER, MEDICAID, SELFPAY ==
--- NOTE | 2024-03-17 10:34 | MHC.PC.OV ---
Vital Signs 03/17/24 11:39 Height 5 ft 9 in Weight 258 lb BMI 38.1 BP 118/78 Blood Pressure Location Lt brachial Position Sitting Pulse 66 Pulse Source Pulse Oximeter Pulse Oximetry (%) 96 Oxygen Delivery Method Room Air Intake Visit Reasons: Establish care transfer from [facility] Intake Note: patient here for new patient visit Payroll And Benefits Specialist Required: No Accompanied by: Mother Allergies haloperidol [From Haldol] Allergy (Unknown, Verified 03/17/24 11:33) Unknown lactose Allergy (Unknown, Verified 03/17/24 11:33) Unknown Tobacco use date assessed: 03/17/24 Dental Screening Dental Screen Date: 03/17/24 Did you have a dental visit in the last 12 months?: Yes Did you have a dental problem in the last 6 months where you did not have access to dental care?: No Was dental information given to patient?: Patient has dentist HPI HPI Comments History of Present Illness Details This is a 43-year-old male with a past medical history of autism, insomnia, chronic constipation, GERD and hyperlipidemia presenting to transfer care from [facility]. He is accompanied by Mariela, the heavy equipment supervisor as his home, and his mother, Patricia. His services are provided by [employer]. Overall he is doing well. His psychiatrist has decreased some of his medications over the past year. He is on a very good schedule every day. They do not have any specific concerns today. His psychiatrist is Dr. Batista. His dose of MiraLax was adjusted last year, and diarrhea resolved. He saw Gastroenterology, and he has a follow-up scheduled in March with [facility]. He was hosptalized in the past for constipation which resulted in severe agitation and behavioral changes. He saw Neurology to review episodes of excessive somnolence/altered mental status in 2021. He has not had further episodes since that time. He had an EEG to rule out seizure activity. He was instructed to follow up if he has recurrent episodes. His mother suspects that this was a result of somebody giving him incorrect medications or something else at his program. He had a complete physical exam and blood work done at [facility] in 07/12/2023. [facility] Medical History (Updated 03/17/24 @ 13:35 by JOSH Ashton) Uncontrolled daytime somnolence Obesity (BMI 30-39.9) Insomnia Hyperlipidemia Chronic GERD Chronic constipation Allergic conjunctivitis and rhinitis Nonverbal Autism Family History (Updated 03/17/24 @ 13:34 by JOSH Ashton) Mother Hypertension Cancer Father COPD mixed type CHF (congestive heart failure) Social History Household Members: Family Housing: Other Housing Other:: [facility] Do you presently have visiting nurse or other home services: Yes Alcohol intake: never Patient Tobacco Use Status: Never used Tobacco e-Cigarette/Vaping Use: Never Used Second Hand Smoke Exposure: No service: No Current occupational status: disabled Current occupational exposures/hazards: No Cognitive needs: Yes Hearing needs: No Vision needs: No Questionnaire PHQ-9 Over the last 2 weeks, how often have you been bothered by any of the following problems? 1. Little interest or pleasure in doing things: not at all 2. Feeling down, depressed, or hopeless: not at all 3. Trouble falling or staying asleep, or sleeping too much: not at all 4. Feeling tired or having little energy: not at all 5. Poor appetite or overeating: not at all 6. Feeling bad about yourself - or that you are a failure or have let yourself or your family down: not at all 7. Trouble concentrating on things, such as reading the newspaper or watching television: not at all 8. Moving or speaking so slowly that other people could have noticed. Or the opposite - being so fidgety or restless that you have been moving around a lot more than usual: not at all 9. Thoughts that you would be better off or of hurting yourself in some way: not at all Total score: 0 Depression Screening Interpretation: Negative Depression Screening Done: Yes 23815 - PHQ-9 Billing: Yes Source: Developed by Drs. Marcus White, Jamila Hartmann, Hero Eastman and colleagues, with an educational allyson from [employer]. Thrive Questionnaire Date Thrive assessed: 03/17/24 I am a: Patient What is your living situation today?: I have a steady place to live Within the past 12 months, did the food you bought not last and you didn't have the money to get more?: Never true Within the past 12 months, did you worry whether your food would run out before you got money to buy more?: Never true Do you have trouble paying for medicines?: No Do you have trouble getting transportation to medical appointments?: No Do you have trouble paying your heating and electricity bill?: No Do you have trouble taking care of your child, family member or friend?: No Do you have trouble with day-to-day activities such as bathing, preparing meals, shopping, managing finances, etc.?: No Are you currently unemployed and looking for a job?: No Are you interested in more education?: No Please select the resources that you would like help with: None Currently or been in a relationship where the following occur: no concerns reported THRIVE Score: 0 AUDIT C Alcohol Use Questionnaire (AUDIT-C) 1. How often do you have a drink containing alcohol?: Never Total Score: 0 GEGE-7 AMB Questionnaire GEGE-7 Date GEGE - 7 assessed: 03/17/24 Feeling nervous, anxious, or on edge: 1 = Several days Not being able to stop or control worryin = Not at all Worrying too much about different things: 0 = Not at all Trouble relaxin = Not at all Being so restless that it is hard to sit still: 0 = Not at all Becoming easily annoyed or irritable: 0 = Not at all Feeling afraid as if something awful might happen: 0 = Not at all Total GEGE-7 score (0-4 normal; 5-9 mild; 10-14 moderate; 15-21 severe): 1 Source: Developed by Drs. Marcus White, Jamila Hartmann, Hero Eastman and colleagues, with an educational allyson from [employer]. GEGE-7 Assessment Billing GEGE-7 Assessment Tool: GEGE-7 Assessment 11580 Review of Systems Const Unobtainable due to mental status Physical exam (Primary Care) Vital Signs: Last Vital Signs Pulse 66 03/17/24 11:39 BP 118/78 03/17/24 11:39 Pulse Ox 96 03/17/24 11:39 Oxygen Delivery Method Room Air 03/17/24 11:39 BMI result Body Mass Index 38.1 Tobacco/Smoking Status: Tobacco use Status Tobacco use date assessed 03/17/24 03/17/24 11:37 Patient Tobacco Use Status Never used Tobacco 03/17/24 11:37 e-Cigarette/Vaping Use Never Used 03/17/24 11:37 PHQ-9: PHQ-9 Score PHQ-9: Total score 0 03/17/24 12:17 Depression Screening Interpretation: Negative Thrive Assessment: Date of Thrive Assessment Date Thrive assessed 03/17/24 03/17/24 11:59 Currently or been in a relationship where the following occur: no concerns reported Const Other: Constitutional: Alert, in no distress. Respiratory: Clear to auscultation. Cardiovascular: S1 S2 regular. No murmurs. Gastrointestinal: Abdomen soft, non-tender, non-distended. No palpable masses. Genitourinary: No costovertebral angle tenderness. Neurologic: Limited verbal capability-says hi and bye-bye Extremities: Warm and well perfused. No clubbing, cyanosis or edema. Psychiatric: Cooperative. Assessment and Plan Assessment & Plan (1) Autism: Code(s): F84.0 - Autistic disorder (2) Chronic constipation: Code(s): K59.09 - Other constipation (3) Allergic conjunctivitis and rhinitis: Code(s): H10.10 - Acute atopic conjunctivitis, unspecified eye; J30.9 - Allergic rhinitis, unspecified Qualifiers: Laterality: bilateral Qualified Code(s): H10.13 - Acute atopic conjunctivitis, bilateral; J30.9 - Allergic rhinitis, unspecified (4) Hyperlipidemia: Code(s): E78.5 - Hyperlipidemia, unspecified Qualifiers: Hyperlipidemia type: pure hypercholesterolemia Qualified Code(s): E78.00 - Pure hypercholesterolemia, unspecified (5) Insomnia: Code(s): G47.00 - Insomnia, unspecified Qualifiers: Insomnia type: psychophysiologic Qualified Code(s): F51.04 - Psychophysiologic insomnia Plan In summary this is a very pleasant 43-year-old male presenting to [facility]. His chronic conditions are currently stable. He is followed by psychiatry, and he has a follow up scheduled with gastroenterology. Continue current medications. Follow up in June for CPE. Paperwork signed for service net. Coding Level of Care Code Est Pt Level 4 (41475) Complex EM visit Add On G2211 Diagnoses Autism F84.0 Chronic constipation K59.09 Allergic conjunctivitis of both eyes and rhinitis H10.13; J30.9 Laterality: bilateral Pure hypercholesterolemia E78.00 Hyperlipidemia type: pure hypercholesterolemia Psychophysiological insomnia F51.04 Insomnia type: psychophysiologic Additional Codes GEGE-7 Assessment Billing - GEGE-7 Assessment Tool: GEGE-7 Assessment 47983 ([id number])
[2024-03-17 11:39] VITALS: BP 118/78; PULSE 66; O2SAT 96; BMI 38.1
== END 2024-03-17 12:22 | disposition home or self-care (01) ==
PROVIDERS: Visit Provider Physician Assistant Medical
DX: E78.00 Pure hypercholesterolemia, unspecified (principal); F84.0 Autistic disorder; K59.09 Other constipation; H10.13 Acute atopic conjunctivitis, bilateral; J30.9 Allergic rhinitis, unspecified; F51.04 Psychophysiologic insomnia
CPT/HCPCS: 99214; G2211

== ENCOUNTER 2024-07-16 10:19 | Outpatient (AMB) | payer MEDICARE, OTHER, MEDICAID, SELFPAY ==
--- NOTE | 2024-07-16 10:31 | A.OFFPC_ITS ---
Vital Signs 07/16/24 10:33 Height 5 ft 9 in Weight 261 lb 2 oz BMI 38.6 BP 96/78 Blood Pressure Location Rt brachial Position Sitting Pulse 82 Pulse Source Pulse Oximeter Pulse Oximetry (%) 99 Oxygen Delivery Method Room Air Intake Visit Reasons: annual Intake Note: Physical Life Enrichment Assistant Required: No Allergies haloperidol [From Haldol] Allergy (Unknown, Verified 07/16/24 10:31) Unknown lactose Adverse Reaction (Unknown, Verified 07/16/24 10:48) Constipation Medication List - Last Reviewed 07/16/24 by Chrissy Dexter, CHRIS acetaminophen 650 mg (2 x 325 mg) PO Q6H PRN bacitracin 1 appl topical Q12H PRN bisacodyl 5 mg PO DAILY cetirizine (Zyrtec) 10 mg PO DAILY cholecalciferol (vitamin D3) 50 mcg PO DAILY clonazepam 1 mg PO BID dextromethorphan-guaifenesin 5-100 mg/5 mL (Robitussin Cough-Chest Congestion DM) 5 mL PO Q6H PRN docusate sodium (Colace) orally daily; 1 capsule in the morning and two in the evening 90 days fluoxetine 1 cap PO DAILY fluticasone propionate 50 mcg/actuation 2 sprays intranasal DAILY lubiprostone (Amitiza) 1 cap PO DAILY@1500 magnesium citrate (OneLAX Magnesium Citrate oral solution) 150 mL PO DAILY melatonin 3 mg PO BEDTIME nystatin 1 appl topical Q8H PRN omeprazole 1 cap PO DAILY@1630 polyethylene glycol 3350 (Miralax) 17 grams PO DAILY PRN polyvinyl alcohol 1.4% (Artificial Tears (polyvinyl alcohol)) 1 drp ophthalmic (eye) BID propranolol 1 tab PO BEDTIME triamcinolone acetonide 0.1% 1 appl mucous membrane Q8H PRN Tobacco use date assessed: 03/17/24 Dental Screening Dental Screen Date: 03/17/24 HPI HPI Comments History of Present Illness Details This is a 43-year-old male with a past medical history of autism, insomnia, chronic constipation, GERD and hyperlipidemia presenting for a physical exam. He is accompanied by Mariela, the supervisor publications production as his home, and his mother, Patricia. His services are provided by [employer]. His psychiatrist has decreased some of his medications over the past year. He is on a very good schedule every day. They do not have any specific concerns today. His psychiatrist is Dr. Batista. Patient is at [facility] in 04/11/2024. He will follow up in a year. He was hosptalized in the past for constipation which resulted in severe agitation and behavioral changes. They need a new letter for his program for restrictions regarding dairy consumption. They deny history of IgE mediated symptoms with dairy ingestion or lactose, but because of his constipation they limit how much he eats. He has cup cakes, some ice cream and other sources without reactions. He saw Neurology to review episodes of excessive somnolence/altered mental status in 2021. He has not had further episodes since that time. He had an EEG to rule out seizure activity. He was instructed to follow up if he has re current episodes. His mother suspects that this was a result of somebody giving him incorrect medications or something else at his program. He received the flu vaccine today. Mariela has a copy of his immunization record, and she will send it to the portal. ROS: Constitutional: No unexplained weight loss, fever, chills, fatigue or night sweats. Eyes: No vision changes, blurry vision, double vision, eye pain, eye redness, eye discharge. ENT: No hearing loss, sneezing, congestion, runny nose or sore throat. Respiratory: No shortness of breath, cough or sputum production. Cardiovascular: No chest pain, chest pressure or chest discomfort. No palpitations or pedal edema. Gastrointestinal: No anorexia, nausea, vomiting or diarrhea. No abdominal pain or blood in stool. Genitourinary: No dysuria, hematuria, urinary frequency. Neurologic: No headache, dizziness, syncope, unilateral weakness, ataxia, numbness or tingling in the extremities. Musculoskeletal: No muscle pain, back pain, joint pain or swelling. Hematologic/Lymphatics: No bleeding or bruising. No painful lymph nodes. Skin: No rash or itching. Endocrine: No cold or heat intolerance. No polyuria or polydipsia. Psychiatric: No depression or anxiety. No SI/HI. Physical exam: Constitutional: Alert, in no distress. Head: Normocephalic. Eyes: Pupils are equal, round and reactive to light. Extraocular muscles intact. Ear, Nose and Throat: Canals clear. TMs normal. Normal nasal mucosa. No nasal discharge. No oral lesions. Neck: Supple, Full range of motion. No lymphadenopathy. No palpable thyroid masses. Respiratory: Clear to auscultation. Cardiovascular: S1 S2 regular. No murmurs. Gastrointestinal: Abdomen soft, non-tender, non-distended. Normal bowel sounds. No palpable masses. Genitourinary: His guardian, Patricia, gave consent to the exam. She is present during examination. No palpable hernias, testicular masses, swelling or discoloration. Neurologic: Nonverbal Skin: No rashes Musculoskeletal: No gross deformities. Normal range of motion. Extremities: Warm and well perfused. No clubbing, cyanosis or edema. [facility] Medical History (Updated 07/16/24 @ 10:34 by JOSH Ashton) Routine physical examination Uncontrolled daytime somnolence Obesity (BMI 30-39.9) Insomnia Hyperlipidemia Chronic GERD Chronic constipation Allergic conjunctivitis and rhinitis Nonverbal Autism Family History (Updated 03/17/24 @ 13:34 by JOSH Ashton) Mother Hypertension Cancer Father COPD mixed type CHF (congestive heart failure) Social History Household Members: Family Housing: Other Housing Other:: [facility] Do you presently have visiting nurse or other home services: Yes Alcohol intake: never Patient Tobacco Use Status: Never used Tobacco e-Cigarette/Vaping Use: Never Used Second Hand Smoke Exposure: No service: No Current occupational status: disabled Current occupational exposures/hazards: No Cognitive needs: Yes Hearing needs: No Vision needs: No Questionnaire PHQ-9 Over the last 2 weeks, how often have you been bothered by any of the following problems? 1. Little interest or pleasure in doing things: not at all 2. Feeling down, depressed, or hopeless: not at all 3. Trouble falling or staying asleep, or sleeping too much: not at all 4. Feeling tired or having little energy: not at all 5. Poor appetite or overeating: not at all 6. Feeling bad about yourself - or that you are a failure or have let yourself or your family down: not at all 7. Trouble concentrating on things, such as reading the newspaper or watching television: not at all 8. Moving or speaking so slowly that other people could have noticed. Or the opposite - being so fidgety or restless that you have been moving around a lot more than usual: not at all 9. Thoughts that you would be better off or of hurting yourself in some way: not at all Total score: 0 Source: Developed by Drs. Marcus White, Jamila Hartmann, Hero Eastman and colleagues, with an educational allyson from [employer]. Thrive Questionnaire Date Thrive assessed: 03/17/24 I am a: Parent/Caregiver What is your living situation today?: I have a steady place to live Within the past 12 months, did the food you bought not last and you didn't have the money to get more?: Never true Within the past 12 months, did you worry whether your food would run out before you got money to buy more?: Never true Do you have trouble paying for medicines?: No Do you have trouble getting transportation to medical appointments?: No Do you have trouble paying your heating and electricity bill?: No Do you have trouble taking care of your child, family member or friend?: No Do you have trouble with day-to-day activities such as bathing, preparing meals, shopping, managing finances, etc.?: No Are you currently unemployed and looking for a job?: No Are you interested in more education?: No Please select the resources that you would like help with: None Currently or been in a relationship where the following occur: No concerns reported THRIVE Score: 0 AUDIT C Alcohol Use Questionnaire (AUDIT-C) 1. How often do you have a drink containing alcohol?: Never Total Score: 0 GEGE-7 AMB Questionnaire GEGE-7 Date GEGE - 7 assessed: 03/17/24 Feeling nervous, anxious, or on edge: 0 = Not at all Not being able to stop or control worryin = Not at all Worrying too much about different things: 0 = Not at all Trouble relaxin = Not at all Being so restless that it is hard to sit still: 0 = Not at all Becoming easily annoyed or irritable: 0 = Not at all Feeling afraid as if something awful might happen: 0 = Not at all Total GEGE-7 score (0-4 normal; 5-9 mild; 10-14 moderate; 15-21 severe): 0 Source: Developed by Jamila Jackman Kurt Kroenke and colleagues, with an educational allyson from [employer]. Physical exam (Primary Care) Vital Signs: Last Vital Signs Pulse 82 07/16/24 10:33 BP 96/78 07/16/24 10:33 Pulse Ox 99 07/16/24 10:33 Oxygen Delivery Method Room Air 07/16/24 10:33 BMI result Body Mass Index 38.6 Tobacco/Smoking Status: Tobacco use Status Tobacco use date assessed 03/17/24 07/16/24 10:34 Patient Tobacco Use Status Never used Tobacco 07/16/24 10:34 e-Cigarette/Vaping Use Never Used 07/16/24 10:34 PHQ-9: PHQ-9 Score PHQ-9: Total score 0 07/16/24 11:30 Thrive Assessment: Date of Thrive Assessment Date Thrive assessed 03/17/24 07/16/24 10:34 Currently or been in a relationship where the following occur: No concerns reported Office Procedures Flu Questionnaire Does the patient have a severe egg allergy?: No Does the patient have severe life threatening allergies?: No Does the patient have a fever or illness today?: No Has the patient ever had Guillain-[place] Syndrome?: No Has the patient ever had any past reaction to a flu shot?: No Immunizations Fluarix Triv [id number] (PF) 45 mcg (15 mcg x 3)/0.5 mL IM syringe Performing Provider: JOSH Ashton Performing Location: [facility] [place] Family Medicine Administered by: Chrissy Dexter CMA on 07/16/24 11:33 Variance Reason: Prevent Infection Dose Route Admin Location Dispensed Lot Number Expiration Date [facility] [employer] Network[employer] In[employer] Adjunct 0.5 mL IM Right Deltoid 0.5 mL [id number] 03/22/25 [id number] [employer] VIS Given Date VIS Provided VIS Publication Date 07/16/24 Single Vaccine 21 Eligibility Eligibility Date Funding Source Not [facility] Eligible 07/16/24 Private Coding Level of Care Code Est Pt Prev Care 40-64y(24073) Diagnoses Routine physical examination Z00.00 Chronic constipation K59.09 Pure hypercholesterolemia E78.00 Hyperlipidemia type: pure hypercholesterolemia Autism F84.0 Assessment & Plan Assessment & Plan (1) Routine physical examination: Code(s): Z00.00 - Encounter for general adult medical examination without abnormal findings Category: Medical (2) Chronic constipation: Code(s): K59.09 - Other constipation Category: Medical (3) Hyperlipidemia: Code(s): E78.5 - Hyperlipidemia, unspecified Category: Medical Qualifiers: Hyperlipidemia type: pure hypercholesterolemia Qualified Code(s): E78.00 - Pure hypercholesterolemia, unspecified (4) Autism: Code(s): F84.0 - Autistic disorder Category: Medical Plan Patient is seen today for a routine physical. As part of this visit we reviewed the following issues, which are considered and essential part of preventative health in this age group: - Discussed Prostate cancer screening - Blood pressure screening - Cholesterol screening - Nutritional and exercise counseling - Counseling of injury prevention including fire prevention, smoke alarms and seat belt usage - Education about skin cancer - Recommendations about immunizations - Recommendation of an eye exam After the letter regarding his diet is completed it will be uploaded to the portal, and I will mail a copy to Patricia. Orders: Orders Prostate Specific Antigen Today E66.9 - Obesity, unspecified, E78.00 - Pure hypercholesterolemia, unspecified, K59.09 - Other constipation, R47.01 - Aphasia, Z00.00 - Encounter for general adult medical examination without abnormal findings, Z12.5 - Encounter for screening for malignant neoplasm of prostate Lipid Panel Today E66.9 - Obesity, unspecified, E78.5 - Hyperlipidemia, unspecified, K59.09 - Other constipation, R47.01 - Aphasia, Z00.00 - Encounter for general adult medical examination without abnormal findings Comprehensive Met. Panel Today E66.9 - Obesity, unspecified, E78.00 - Pure hypercholesterolemia, unspecified, K59.09 - Other constipation, R47.01 - Aphasia, Z00.00 - Encounter for general adult medical examination without abnormal findings TSH reflex Free T4 Today E66.9 - Obesity, unspecified, E78.00 - Pure hypercholesterolemia, unspecified, K59.09 - Other constipation, R47.01 - Aphasia, Z00.00 - Encounter for general adult medical examination without abnormal findings Complete Blood Count no Diff Today E66.9 - Obesity, unspecified, E78.00 - Pure hypercholesterolemia, unspecified, K59.09 - Other constipation, R47.01 - Aphasia, Z00.00 - Encounter for general adult medical examination without abnormal findings Influenza [id number] Immunization Today Z23 - Encounter for immunization Medications: New melatonin 3 mg PO BEDTIME 90 tabs 3RF
[2024-07-16 10:33] VITALS: BP 96/78; PULSE 82; O2SAT 99; BMI 38.6
== END 2024-07-16 11:23 | disposition home or self-care (01) ==
PROVIDERS: PCP Physician Assistant Medical; Visit Provider Physician Assistant Medical
DX: Z00.00 Encounter for general adult medical examination without abnormal findings (principal); K59.09 Other constipation; E78.00 Pure hypercholesterolemia, unspecified; F84.0 Autistic disorder

== ENCOUNTER → 2024-07-16 10:19 | Outpatient (BNVA) | payer MEDICARE, OTHER, MEDICAID, SELFPAY | PROVIDERS: PCP Physician Assistant Medical; Visit Provider Physician Assistant Medical | DX: Z00.00 Encounter for general adult medical examination without abnormal findings (principal); K59.09 Other constipation; E78.00 Pure hypercholesterolemia, unspecified; F84.0 Autistic disorder; K21.9 Gastro-esophageal reflux disease without esophagitis; G47.00 Insomnia, unspecified; L84 Corns and callosities; Z23 Encounter for immunization | CPT/HCPCS: 90471; 90656; 96127; 99396 ==

== ENCOUNTER 2024-07-22 08:22 | Outpatient (REF) | payer MEDICARE, OTHER, MEDICAID, SELFPAY ==
[2024-07-22 11:32] LABS: Hematocrit 43.4 % (42.0-52.0); Hemoglobin 14.5 g/dl (14.0-18.0); Mean Corpuscular HGB Conc 33.4 g/dl (31.0-36.0); Mean Corpuscular Hemoglobin 28.8 pg (27.0-33.0); Mean Corpuscular Volume 86.3 fL (80.0-98.0); Mean Platelet Volume 10.2 fL (9.4-12.4); Platelet Count 227 X10*3/uL (160-400); Red Blood Count 5.03 X10*6/uL (4.60-5.80); Red Cell Distribution Width 12.9 % (11.0-16.0); White Blood Count 5.1 X10*3/uL (4.8-10.8)
[2024-07-22 12:08] LABS: Alanine Aminotransferase 21 U/L (0-40); Albumin Level 4.1 g/dL (3.5-5.0); Alkaline Phosphatase 59 U/L (39-117); Anion Gap 11 (12-20); Aspartate Amino Transferase 22 U/L (5-37); Bilirubin Total 0.7 mg/dL (0.0-1.0); Blood Urea Nitrogen 18 mg/dL (9-16); Calcium 8.6 mg/dL (8.4-10.2); Carbon Dioxide 24 mmol/L (22-29); Chloride 110 mmol/L (96-108); Cholesterol 186 mg/dL (<200); Estimated Glomerular Filt Rate > 60; Glucose Random 92 mg/dL (60-115); HDL Cholesterol 44 mg/dL (>40); LDL Cholesterol Calculated 119 mg/dL (<100); Potassium 3.9 mmol/L (3.3-5.1); Sodium 141 mmol/L (135-145); Triglycerides 118 mg/dL (<150)
[2024-07-22 13:36] LABS: TSH reflex Free T4 2.67 uIU/mL (0.32-4.0)
== END 2024-07-22 08:23 | disposition home or self-care (01) ==
LOC: HO.WFDLDS 08:22
PROVIDERS: Visit Provider Physician Assistant Medical
DX: Z00.00 Encounter for general adult medical examination without abnormal findings (principal); Z12.5 Encounter for screening for malignant neoplasm of prostate; E66.9 Obesity, unspecified; K59.09 Other constipation; E78.00 Pure hypercholesterolemia, unspecified; R47.01 Aphasia; E78.5 Hyperlipidemia, unspecified
CPT/HCPCS: 36415; 80053; 80061; 84153; 84443; 85027

== ENCOUNTER 2025-01-04 10:21 | Outpatient (AMB) | payer MEDICARE, OTHER, MEDICAID, SELFPAY ==
--- NOTE | 2025-01-04 10:30 | A.OFFPC_ITS ---
Vital Signs 01/04/25 10:40 Height 5 ft 9 in Weight 262 lb 4 oz BMI 38.7 BP 102/72 Blood Pressure Location Lt brachial Position Sitting Pulse 76 Pulse Source Pulse Oximeter Temp 97.9 F Temp Source Temporal Artery Scan Pulse Oximetry (%) 98 Oxygen Delivery Method Room Air Intake Visit Reasons: follow up 30 minutes med review Intake Note: Alfred presents in the office today for a mediation review. Allergies haloperidol [From Haldol] Allergy (Unknown, Verified 01/04/25 10:33) Unknown Seasonal Allergies Allergy (Verified 01/04/25 10:33) Eyes itch lactose Adverse Reaction (Unknown, Verified 01/04/25 10:33) Constipation Tobacco use date assessed: 01/04/25 Dental Screening Dental Screen Date: 01/04/25 Did you have a dental visit in the last 12 months?: Yes Did you have a dental problem in the last 6 months where you did not have access to dental care?: No Was dental information given to patient?: Patient has dentist HPI HPI Comments History of Present Illness Details This is a 44-year-old male with a past medical history of autism, insomnia, chronic constipation, GERD and hyperlipidemia presenting for follow up. He is accompanied by Mariela, the sintering plant supervisor as his home, and his mother, Patricia. His services are provided by [employer]. His psychiatrist has decreased some of his medications over the past year. He is on a very good schedule every day. They do not have any specific concerns today. His psychiatrist is Dr. Batista. Patient saw [facility] 04/11/2024. He will follow up in a year. He was hospitalized in the past for constipation which resulted in severe julio tation and behavioral changes. I have provided a letter for his program regarding dietary recommendations. They limit dairy intake due to constipation. He saw Neurology to review episodes of excessive somnolence/altered mental status in 2021. He has not had further episodes since that time. He had an EEG to rule out seizure activity. He was instructed to follow up if he has recurrent episodes. His mother suspects that this was a result of somebody giving him incorrect medications at his program. ROS: Constitutional: No unexplained weight loss, fever, chills, fatigue Skin: No rash or itching. Physical exam: Constitutional: Alert, in no distress. Neck: Supple, Full range of motion. No lymphadenopathy. No palpable thyroid masses. Respiratory: Clear to auscultation. Cardiovascular: S1 S2 regular. No murmurs. Gastrointestinal: Abdomen soft, non-tender, non-distended. Normal bowel sounds. No palpable masses. Neurologic: Nonverbal Extremities: Warm and well perfused. No clubbing, cyanosis or edema. [facility] Medical History (Updated 07/16/24 @ 10:34 by JOSH Ashton) Routine physical examination Uncontrolled daytime somnolence Obesity (BMI 30-39.9) Insomnia Hyperlipidemia Chronic GERD Chronic constipation Allergic conjunctivitis and rhinitis Nonverbal Autism Family History Mother Hypertension Cancer Father COPD mixed type CHF (congestive heart failure) Social History (Updated 01/04/25 @ 10:40 by Rosa Mares MA) Household Members: Family Housing: Other Housing Other:: nursing home Do you presently have visiting nurse or other home services: Yes Alcohol intake: never Patient Tobacco Use Status: Never used Tobacco e-Cigarette/Vaping Use: Never Used Second Hand Smoke Exposure: No service: No Current occupational status: disabled Current occupational exposures/hazards: No Cognitive needs: Yes Hearing needs: No Vision needs: No Questionnaire PHQ-9 Over the last 2 weeks, how often have you been bothered by any of the following problems? 1. Little interest or pleasure in doing things: not at all 2. Feeling down, depressed, or hopeless: not at all 3. Trouble falling or staying asleep, or sleeping too much: not at all 4. Feeling tired or having little energy: not at all 5. Poor appetite or overeating: several days 6. Feeling bad about yourself - or that you are a failure or have let yourself or your family down: not at all 7. Trouble concentrating on things, such as reading the newspaper or watching television: not at all 8. Moving or speaking so slowly that other people could have noticed. Or the opposite - being so fidgety or restless that you have been moving around a lot more than usual: not at all 9. Thoughts that you would be better off or of hurting yourself in some way: not at all Total score: 1 Depression Screening Interpretation: Negative Depression Screening Done: Yes 82179 - PHQ-9 Billing: Patient declined-do not bill Source: Developed by Drs. Marcus White, Hero Escobar and colleagues, with an educational allyson from [employer]. Thrive Questionnaire Date Thrive assessed: 01/04/25 I am a: Parent/Caregiver What is your living situation today?: I have a steady place to live Within the past 12 months, did the food you bought not last and you didn't have the money to get more?: Never true Within the past 12 months, did you worry whether your food would run out before you got money to buy more?: Never true Do you have trouble paying for medicines?: No Do you have trouble getting transportation to medical appointments?: No Do you have trouble paying your heating and electricity bill?: No Do you have trouble taking care of your child, family member or friend?: No Do you have trouble with day-to-day activities such as bathing, preparing meals, shopping, managing finances, etc.?: No Are you currently unemployed and looking for a job?: No Are you interested in more education?: No Please select the resources that you would like help with: None Currently or been in a relationship where the following occur: No concerns reported THRIVE Score: 0 AUDIT C Alcohol Use Questionnaire (AUDIT-C) 1. How often do you have a drink containing alcohol?: Never Total Score: 0 GEGE-7 AMB Questionnaire GEGE-7 Date GEGE - 7 assessed: 01/04/25 Feeling nervous, anxious, or on edge: 0 = Not at all Not being able to stop or control worryin = Not at all Worrying too much about different things: 0 = Not at all Trouble relaxin = Not at all Being so restless that it is hard to sit still: 0 = Not at all Becoming easily annoyed or irritable: 0 = Not at all Feeling afraid as if something awful might happen: 0 = Not at all Total GEGE-7 score (0-4 normal; 5-9 mild; 10-14 moderate; 15-21 severe): 0 Source: Developed by Drs. Marcus White, Hero Escobar and colleagues, with an educational allyson from [employer]. GEGE-7 Assessment Billing EGGE-7 Assessment Tool: GEGE-7 Assessment 66263 ACT Questionnaire In the past 4 weeks, how much of the time did your asthma keep you from getting as much done at work, school or at home?: None of the time ACT Interpretation: Negative Score: 5 Physical exam (Primary Care) Vital Signs: Last Vital Signs Temp 97.9 F 01/04/25 10:40 Pulse 76 01/04/25 10:40 BP 102/72 01/04/25 10:40 Pulse Ox 98 01/04/25 10:40 Oxygen Delivery Method Room Air 01/04/25 10:40 BMI result Body Mass Index 38.7 Tobacco/Smoking Status: Tobacco use Status Tobacco use date assessed 01/04/25 01/04/25 10:44 Patient Tobacco Use Status Never used Tobacco 01/04/25 10:40 e-Cigarette/Vaping Use Never Used 01/04/25 10:40 PHQ-9: PHQ-9 Score PHQ-9: Total score 1 01/04/25 10:44 Depression Screening Interpretation: Negative Thrive Assessment: Date of Thrive Assessment Date Thrive assessed 01/04/25 01/04/25 10:44 Currently or been in a relationship where the following occur: No concerns reported Coding Level of Care Code Est Pt Level 4 (90080) Complex EM visit Add On G2211 Diagnoses Nonverbal R47.01 Psychophysiological insomnia F51.04 Insomnia type: psychophysiologic Allergic conjunctivitis of both eyes and rhinitis H10.13; J30.9 Laterality: bilateral Chronic constipation K59.09 Autism F84.0 Additional Codes Asthma Control Questionnaire - ACT Interpretation: Negative ([id number]) GEGE-7 Assessment Billing - GEGE-7 Assessment Tool: GEGE-7 Assessment 67294 ([id number]) Assessment & Plan Assessment & Plan (1) Nonverbal: Code(s): R47.01 - Aphasia Category: Medical (2) Insomnia: Code(s): G47.00 - Insomnia, unspecified Category: Medical Qualifiers: Insomnia type: psychophysiologic Qualified Code(s): F51.04 - Psychophysiologic insomnia (3) Allergic conjunctivitis and rhinitis: Code(s): H10.10 - Acute atopic conjunctivitis, unspecified eye; J30.9 - Allergic rhinitis, unspecified Category: Medical Qualifiers: Laterality: bilateral Qualified Code(s): H10.13 - Acute atopic conjunctivitis, bilateral; J30.9 - Allergic rhinitis, unspecified (4) Chronic constipation: Code(s): K59.09 - Other constipation Category: Medical (5) Autism: Code(s): F84.0 - Autistic disorder Category: Medical Plan In summary this is a 44-year-old autistic male stable on his current medications. He is followed by Gastroenterology and Psychiatry. They have no interval medical concerns, and they will schedule a physical exam in June. He will have labs drawn prior to his physical. Orders: Orders Complete Blood Count no Diff 5 Months E66.9 - Obesity, unspecified, E78.00 - Pure hypercholesterolemia, unspecified, F51.04 - Psychophysiologic insomnia, H10.13 - Acute atopic conjunctivitis, bilateral, J30.9 - Allergic rhinitis, unspecified, K21.9 - Gastro-esophageal reflux disease without esophagitis TSH reflex Free T4 5 Months E66.9 - Obesity, unspecified, E78.00 - Pure hypercholesterolemia, unspecified, F51.04 - Psychophysiologic insomnia, H10.13 - Acute atopic conjunctivitis, bilateral, J30.9 - Allergic rhinitis, unspecified, K21.9 - Gastro-esophageal reflux disease without esophagitis Comprehensive Met. Panel 5 Months E66.9 - Obesity, unspecified, E78.00 - Pure hypercholesterolemia, unspecified, F51.04 - Psychophysiologic insomnia, H10.13 - Acute atopic conjunctivitis, bilateral, J30.9 - Allergic rhinitis, unspecified, K21.9 - Gastro-esophageal reflux disease without esophagitis Lipid Panel 5 Months E66.9 - Obesity, unspecified, E78.5 - Hyperlipidemia, unspecified, F51.04 - Psychophysiologic insomnia, H10.13 - Acute atopic conjunctivitis, bilateral, J30.9 - Allergic rhinitis, unspecified, K21.9 - Gastro-esophageal reflux disease without esophagitis Prostate Specific Antigen 5 Months E66.9 - Obesity, unspecified, E78.00 - Pure hypercholesterolemia, unspecified, F51.04 - Psychophysiologic insomnia, H10.13 - Acute atopic conjunctivitis, bilateral, J30.9 - Allergic rhinitis, unspecified, K21.9 - Gastro-esophageal reflux disease without esophagitis, Z12.5 - Encounter for screening for malignant neoplasm of prostate
[2025-01-04 10:40] VITALS: BP 102/72; PULSE 76; TEMP 36.6; O2SAT 98; BMI 38.7
== END 2025-01-04 11:06 | disposition home or self-care (01) ==
LOC: HO.HMCFM 10:28
PROVIDERS: PCP Physician Assistant Medical; Visit Provider Physician Assistant Medical
DX: H10.13 Acute atopic conjunctivitis, bilateral (principal); F51.04 Psychophysiologic insomnia; J30.9 Allergic rhinitis, unspecified; K59.09 Other constipation; F84.0 Autistic disorder

== ENCOUNTER → 2025-01-04 10:21 | Outpatient (BNVA) | payer MEDICARE, OTHER, MEDICAID, SELFPAY | PROVIDERS: PCP Physician Assistant Medical; Visit Provider Physician Assistant Medical | DX: F84.0 Autistic disorder (principal); K59.09 Other constipation; K21.9 Gastro-esophageal reflux disease without esophagitis; E78.5 Hyperlipidemia, unspecified; F51.04 Psychophysiologic insomnia; H10.13 Acute atopic conjunctivitis, bilateral; J30.9 Allergic rhinitis, unspecified; E66.9 Obesity, unspecified; E78.00 Pure hypercholesterolemia, unspecified; Z68.38 Body mass index [BMI] 38.0-38.9, adult | CPT/HCPCS: 96127; 96160; 99212 ==

== ENCOUNTER 2025-02-24 09:08 | Outpatient (REF) | payer MEDICARE, OTHER, MEDICAID, SELFPAY ==
[2025-02-24 09:58] LABS: Hematocrit 42.7 % (42.0-52.0); Hemoglobin 14.5 g/dl (14.0-18.0); Mean Corpuscular Hemoglobin 29.3 pg (27.0-33.0); Mean Corpuscular Volume 86.3 fL (80.0-98.0); Mean Platelet Volume 10.7 fL (9.4-12.4); Platelet Count 203 X10*3/uL (160-400); Red Blood Count 4.95 X10*6/uL (4.60-5.80); White Blood Count 6.4 X10*3/uL (4.8-10.8)
[2025-02-24 11:17] LABS: Prostate Specific Antigen 0.16 ng/mL (<0.05-4.0)
[2025-02-24 11:22] LABS: Alanine Aminotransferase 17 U/L (0-40); Albumin Level 4.4 g/dL (3.5-5.0); Anion Gap 13 (12-20); Aspartate Amino Transferase 20 U/L (5-37); Bilirubin Total 0.9 mg/dL (0.0-1.0); Blood Urea Nitrogen 15 mg/dL (9-16); Calcium 9.4 mg/dL (8.4-10.2); Carbon Dioxide 23 mmol/L (22-29); Chloride 109 mmol/L (96-108); Cholesterol 185 mg/dL (<200); Estimated Glomerular Filt Rate > 60; Glucose Random 89 mg/dL (60-115); HDL Cholesterol 42 mg/dL (>40); LDL Cholesterol Calculated 124 mg/dL (<100); Potassium 4.1 mmol/L (3.3-5.1); Sodium 141 mmol/L (135-145); Total Protein 7.1 g/dL (6.5-8.0); Triglycerides 97 mg/dL (<150)
[2025-02-24 11:40] LABS: TSH reflex Free T4 1.72 uIU/mL (0.32-4.0)
[2025-02-24 13:06] LABS: Alkaline Phosphatase 68 U/L (39-117)
== END 2025-02-24 09:09 | disposition home or self-care (01) ==
LOC: HO.LAB 09:08
PROVIDERS: PCP Physician Assistant Medical; Visit Provider Physician Assistant Medical
DX: E78.00 Pure hypercholesterolemia, unspecified (principal); Z12.5 Encounter for screening for malignant neoplasm of prostate; J30.9 Allergic rhinitis, unspecified; H10.13 Acute atopic conjunctivitis, bilateral; F51.04 Psychophysiologic insomnia; K21.9 Gastro-esophageal reflux disease without esophagitis; E66.9 Obesity, unspecified; E78.5 Hyperlipidemia, unspecified
CPT/HCPCS: 36415; 80053; 80061; 84153; 84443; 85027

== ENCOUNTER 2025-03-29 10:07 | Outpatient (AMB) | payer MEDICARE, OTHER, MEDICAID, SELFPAY ==
--- NOTE | 2025-03-29 10:36 | A.OFFPC_ITS ---
Vital Signs 03/29/25 10:41 Height 5 ft 9 in Weight 258 lb BMI 38.1 BP 102/74 Blood Pressure Location Rt brachial Position Sitting Pulse 86 Pulse Source Pulse Oximeter Temp 98.4 F Temp Source Temporal Artery Scan Pulse Oximetry (%) 95 Oxygen Delivery Method Room Air Intake Visit Reasons: THUMB PAIN/ISSUES Intake Note: Alfred presents in the office today for thumb pain Allergies haloperidol (From Haldol) Allergy (Unknown, Verified 03/29/25 10:40) Unknown Seasonal Allergies Allergy (Verified 03/29/25 10:40) Eyes itch lactose Adverse Reaction (Unknown, Verified 03/29/25 10:40) Constipation Tobacco use date assessed: 03/29/25 Dental Screening Dental Screen Date: 03/29/25 Did you have a dental visit in the last 12 months?: Yes Did you have a dental problem in the last 6 months where you did not have access to dental care?: No Was dental information given to patient?: Patient has dentist HPI HPI Comments History of Present Illness Details This is a 44-year-old male with a past medical history of autism, insomnia, chronic constipation, GERD and hyperlipidemia presenting for evaluation of a finger problem. He is accompanied by his mother, Patricia, and a staff worker from [facility]. Patricia says about 6 weeks ago she went to pick him up and she noticed discoloration under his right thumb that looked like a bruise. When she tried to press on it he pulled his hand away indicating it hurt. There was no witnessed trauma, and the patient is nonverbal so they are not sure exactly what happened. Two weeks ago the nurse from the program checked it and recommended the patient be seen for evaluation. When Patricia presses on it now it does not seem to bother him at all. He is using his hand normally. He uses this hand to eat. He had blood work done recently including a normal CBC. ROS: Constitutional: No fevers or chills Physical exam: Constitutional: Alert, in no distress. Left thumb: purple/black discoloration beneath the proximal to mid nail with a white streak in the middle. Cuticle is clear and intact. The entire thumb and nail are nontender to palpation and he has no pain when the finger is bending. Respiratory: Clear to auscultation. Cardiovascular: S1 S2 regular. No murmurs. [facility] Medical History (Updated 03/29/25 @ 11:30 by JOSH Ashton) Subungual hematoma of right thumb Routine physical examination Uncontrolled daytime somnolence Obesity (BMI 30-39.9) Insomnia Hyperlipidemia Chronic GERD Chronic constipation Allergic conjunctivitis and rhinitis Nonverbal Autism Family History Mother Hypertension Cancer Father COPD mixed type CHF (congestive heart failure) Social History (Updated 03/29/25 @ 10:41 by Rosa Mares MA) Household Members: Family Housing: Other Housing Other:: residential Do you presently have visiting nurse or other home services: Yes Alcohol intake: never Patient Tobacco Use Status: Never used Tobacco e-Cigarette/Vaping Use: Never Used Second Hand Smoke Exposure: No Use of substances other than those prescribed or required for medical reasons: No service: No Current occupational status: disabled Current occupational exposures/hazards: No Cognitive needs: Yes Hearing needs: No Vision needs: No Questionnaire Thrive Questionnaire Date Thrive assessed: 12/30/24 I am a: Parent/Caregiver What is your living situation today?: I have a steady place to live Within the past 12 months, did the food you bought not last and you didn't have the money to get more?: Never true Within the past 12 months, did you worry whether your food would run out before you got money to buy more?: Never true Do you have trouble paying for medicines?: No Do you have trouble getting transportation to medical appointments?: No Do you have trouble paying your heating and electricity bill?: No Do you have trouble taking care of your child, family member or friend?: No Do you have trouble with day-to-day activities such as bathing, preparing meals, shopping, managing finances, etc.?: No Are you currently unemployed and looking for a job?: No Are you interested in more education?: No Please select the resources that you would like help with: None Currently or been in a relationship where the following occur: No concerns r eported THRIVE Score: 0 GEGE-7 AMB Questionnaire GEGE-7 Date GEGE - 7 assessed: 01/04/25 Source: Developed by Drs. Marcus White, Jamila Hartmann, Hero Eastman and colleagues, with an educational allyson from [employer]. Physical exam (Primary Care) Vital Signs: Last Vital Signs Temp 98.4 F 03/29/25 10:41 Pulse 86 03/29/25 10:41 BP 102/74 03/29/25 10:41 Pulse Ox 95 03/29/25 10:41 Oxygen Delivery Method Room Air 03/29/25 10:41 BMI result Body Mass Index 38.1 Tobacco/Smoking Status: Tobacco use Status Tobacco use date assessed 03/29/25 03/29/25 10:44 Patient Tobacco Use Status Never used Tobacco 03/29/25 10:41 e-Cigarette/Vaping Use Never Used 03/29/25 10:41 Thrive Assessment: Date of Thrive Assessment Date Thrive assessed 12/30/24 03/29/25 10:38 Currently or been in a relationship where the following occur: No concerns reported Coding Level of Care Code Est Pt Level 3 (95310) Complex EM visit Add On G2211 Diagnoses Subungual hematoma of right thumb, initial encounter S60.111A Encounter type: initial encounter Assessment & Plan Assessment & Plan (1) Subungual hematoma of right thumb: Code(s): S60.111A - Contusion of right thumb with damage to nail, initial encounter Category: Medical Qualifiers: Encounter type: initial encounter Qualified Code(s): S60.111A - Contusion of right thumb with damage to nail, initial encounter Plan The exam is consistent with a subungual hematoma. The injury is not acute, and he has no pain with it at this point. Trephination not indicated. There does not appear to be damage to the cuticle, and the nail is intact. I expect this to grow out gradually over months. If they are not seeing clear nail growth at the base of the nail they will contact me.
[2025-03-29 10:41] VITALS: BP 102/74; PULSE 86; TEMP 36.9; O2SAT 95; BMI 38.1
== END 2025-03-29 11:30 | disposition home or self-care (01) ==
LOC: HO.HMCFM 10:08
PROVIDERS: PCP Physician Assistant Medical; Visit Provider Physician Assistant Medical
DX: S60.111A Contusion of right thumb with damage to nail, initial encounter (principal)

== ENCOUNTER → 2025-03-29 10:07 | Outpatient (BNVA) | payer MEDICARE, OTHER, MEDICAID, SELFPAY | PROVIDERS: PCP Physician Assistant Medical; Visit Provider Physician Assistant Medical | DX: S60.111A Contusion of right thumb with damage to nail, initial encounter (principal); X58.XXXA Exposure to other specified factors, initial encounter; Y93.9 Activity, unspecified; Y92.9 Unspecified place or not applicable; Y99.9 Unspecified external cause status | CPT/HCPCS: 99212 ==

== ENCOUNTER 2025-07-19 10:33 | Outpatient (AMB) | payer MEDICARE, OTHER, MEDICAID, SELFPAY ==
--- NOTE | 2025-07-19 11:02 | MHC.OFFVIS ---
Vital Signs 07/19/25 11:42 Height 5 ft 9 in Weight 260 lb BMI 38.4 BP 138/68 Blood Pressure Location Lt brachial Position Sitting Respiration 14 Pulse 82 Pulse Source Pulse Oximeter Temp 97.8 F Temp Source Skin Pulse Oximetry (%) 97 Oxygen Delivery Method Room Air Intake Visit Reasons: physical exam Allergies haloperidol (From Haldol) Allergy (Unknown, Verified 03/29/25 10:40) Unknown Seasonal Allergies Allergy (Verified 03/29/25 10:40) Eyes itch lactose Adverse Reaction (Unknown, Verified 03/29/25 10:40) Constipation Medication List - Last Reconciled 07/19/25 by JOSH Ashton acetaminophen 650 mg (2 x 325 mg) PO Q6H PRN bacitracin 1 appl topical Q12H PRN bisacodyl 5 mg PO DAILY carbamide peroxide 6.5% (Debrox) 5 drps otic (ears) Q12H 4 days carboxymethylcellulose sodium 0.5% (Refresh Tears) into the eye(s) 2 times a day; 2 drops in both eyes BID PRN for dry eyes cetirizine (Zyrtec) 10 mg PO DAILY cholecalciferol (vitamin D3) 50 mcg PO DAILY clonazepam 1 mg PO BID dextromethorphan-guaifenesin 5-100 mg/5 mL (Robitussin Cough-Chest Congestion DM) 5 mL PO Q6H PRN docusate sodium (Colace) orally daily; 1 capsule in the morning and two in the evening 90 days fluticasone propionate 50 mcg/actuation 2 sprays intranasal DAILY lubiprostone (Amitiza) 1 cap PO DAILY@1500 magnesium citrate (OneLAX Magnesium Citrate oral solution) 150 mL PO DAILY PRN melatonin 3 mg PO BEDTIME miscellaneous medical supply As directed nystatin 1 appl topical Q8H PRN omeprazole 20 mg PO DAILY@1630 polyethylene glycol 3350 (Miralax) 17 grams PO DAILY polyvinyl alcohol 1.4% (Artificial Tears (polyvinyl alcohol)) 1 drp ophthalmic (eye) BID triamcinolone acetonide 0.1% 1 appl mucous membrane Q8H PRN HPI Comments Details: This is a 45-year-old male with a past medical history of autism, insomnia, chronic constipation, GERD and hyperlipidemia presenting for a physical exam. He is accompanied by Sherita, the supervisor matrix as his home, and his mother, Particia. His services are provided by [employer]. His psychiatrist is Dr. Batista. Patient followed up with [facility] in 2024. He is stable, but he continues to be seen there for medication management including Amitiza. He was hosptalized in the past for constipation which resulted in severe agitation and behavioral changes. He saw Neurology to review episodes of excessive somnolence/altered mental status in 2021. He has not had further episodes since that time. He had an EEG to rule out seizure activity. He was instructed to follow up if he has recurrent episodes. His mother suspects that this was a result of somebody giving him incorrect medications or something else at his program. He received the flu vaccine today. His mother is going to check for a copy of his immunization record for tetanus status at home. He is due for a screening for colon cancer. We discussed colonoscopy and Cologuard, and the decision was made to proceed with Cologuard. He saw Podiatry this year and was given inserts for his shoes, but he did not tolerate them. He was constantly pulling them out of issues. Seen by podiatry for inserts that were not tolerated. He had routine lab evaluation in February of 2025, and we reviewed these results again. This included PSA testing which was negative. ROS: They report no fevers, chills or recent infections or concerns. Patient is nonverbal. Physical exam: Constitutional: Alert, in no distress. Head: Normocephalic. Eyes: Pupils are equal, round and reactive to light. Extraocular muscles intact. Ear, Nose and Throat: Right canal occluded by brown wax. Left canal with excessive brown wax. Normal nasal mucosa. No nasal discharge. No oral lesions. Neck: Supple, Full range of motion. No lymphadenopathy. No palpable thyroid masses. Respiratory: Clear to auscultation. Cardiovascular: S1 S2 regular. No murmurs. Gastrointestinal: Abdomen soft, non-tender, non-distended. Normal bowel sounds. No palpable masses. Genitourinary: His guardian, Patricia, gave consent to the exam. She is present during examination. No palpable hernias, testicular masses, swelling or discoloration or rashes. Neurologic: Nonverbal Skin: No rashes , ecchymosis or erythema. Musculoskeletal: No gross deformities. Normal range of motion. Extremities: Warm and well perfused. No clubbing, cyanosis or edema. Intact peripheral pulses bilaterally. [facility] Medical History (Updated 07/19/25 @ 11:47 by JOSH Ashton) Impacted cerumen Subungual hematoma of right thumb Routine physical examination Uncontrolled daytime somnolence Obesity (BMI 30-39.9) Insomnia Hyperlipidemia Chronic GERD Chronic constipation Allergic conjunctivitis and rhinitis Nonverbal Autism Family History Mother Hypertension Cancer Father COPD mixed type CHF (congestive heart failure) Social History (Updated 03/29/25 @ 10:41 by Rosa Mares MA) Household Members: Family Housing: Other Housing Other:: alf Do you presently have visiting nurse or other home services: Yes Alcohol intake: never Patient Tobacco Use Status: Never used Tobacco e-Cigarette/Vaping Use: Never Used Second Hand Smoke Exposure: No service: No Current occupational status: disabled Current occupational exposures/hazards: No Cognitive needs: Yes Hearing needs: No Vision needs: No Office Procedures Flu Questionnaire Does the patient have a severe egg allergy?: No Does the patient have severe life threatening allergies?: No Does the patient have a fever or illness today?: No Has the patient ever had Guillain-[place] Syndrome?: No Has the patient ever had any past reaction to a flu shot?: No Immunizations Fluarix [id number] (PF) 45 mcg (15 mcg x 3)/0.5 mL IM syringe Performing Provider: JOSH Ashton Performing Location: [facility] [place] [facility] Administered by: Fran Viramontes RN on 07/19/25 11:33 Dose Route Admin Location Dispensed Lot Number Expiration Date [employer] 0.5 mL IM Left Deltoid 0.5 mL [id number] 03/22/26 [id number] [employer] VIS Given Date VIS Provided VIS Publication Date 07/19/25 Single Vaccine 24 Eligibility Eligibility Date Funding Source Not [facility] Eligible 07/19/25 Private Assessment & Plan Assessment & Plan (1) Routine physical examination: Code(s): Z00.00 - Encounter for general adult medical examination without abnormal findings Category: Medical (2) Chronic constipation: Code(s): K59.09 - Other constipation Category: Medical (3) Hyperlipidemia: Code(s): E78.5 - Hyperlipidemia, unspecified Category: Medical Qualifiers: Hyperlipidemia type: pure hypercholesterolemia Qualified Code(s): E78.00 - Pure hypercholesterolemia, unspecified (4) Autism: Code(s): F84.0 - Autistic disorder Category: Medical (5) Impacted cerumen: Code(s): H61.20 - Impacted cerumen, unspecified ear Category: Medical Qualifiers: Laterality: bilateral Qualified Code(s): H61.23 - Impacted cerumen, bilateral Plan Patient is seen today for a routine physical. As part of this visit we reviewed the following issues, which are considered and essential part of preventative health in this age group: - Discussed Prostate cancer screening - Blood pressure screening - Cholesterol screening - Nutritional and exercise counseling - Counseling of injury prevention including fire prevention, smoke alarms and seat belt usage - Education about skin cancer - Recommendations about immunizations - Recommendation of an eye exam Patient's systolic blood pressure was mildly elevated today. He does not have a history of hypertension. This will be monitored and rechecked in 6 months at his next follow up appointment. He will continue his current medications. I completed forms for his program. They will use Debrox drops as directed for 4 days and return for an appointment for your flushing. Orders: Orders Influenza [id number] Immunization Today Z23 - Encounter for immunization Referrals Cologuard Test Z12.11 - Encounter for screening for malignant neoplasm of colon Medications: New miscellaneous medical supply As directed 1 ea 0RF carbamide peroxide 6.5% (Debrox) Administer for 4 days prior to the appointment for ear flushing. 5 drps otic (ears) Q12H 15 mL 0RF 4 days Coding Level of Care Code Est Pt Prev Care 40-64y(13545) Diagnoses Routine physical examination Z00.00 Chronic constipation K59.09 Pure hypercholesterolemia E78.00 Hyperlipidemia type: pure hypercholesterolemia Autism F84.0 Bilateral impacted cerumen H61.23 Laterality: bilateral
[2025-07-19 11:42] VITALS: BP 138/68; PULSE 82; RESP 14; TEMP 36.6; O2SAT 97; BMI 38.4
== END 2025-07-19 11:37 | disposition home or self-care (01) ==
LOC: HO.HMCFM 10:35
PROVIDERS: PCP Physician Assistant Medical; Visit Provider Physician Assistant Medical
DX: Z00.00 Encounter for general adult medical examination without abnormal findings (principal); K59.09 Other constipation; E78.00 Pure hypercholesterolemia, unspecified; F84.0 Autistic disorder; H61.23 Impacted cerumen, bilateral; Z23 Encounter for immunization

== ENCOUNTER → 2025-07-19 10:33 | Outpatient (BNVA) | payer MEDICARE, OTHER, MEDICAID, SELFPAY | PROVIDERS: PCP Physician Assistant Medical; Visit Provider Physician Assistant Medical | DX: Z00.00 Encounter for general adult medical examination without abnormal findings (principal); Z23 Encounter for immunization; K59.09 Other constipation; E78.00 Pure hypercholesterolemia, unspecified; F84.0 Autistic disorder; H61.23 Impacted cerumen, bilateral | CPT/HCPCS: 90471; 90656; 99396 ==

== ENCOUNTER 2025-08-02 11:55 | Outpatient (AMB) | payer MEDICARE, OTHER, MEDICAID, SELFPAY ==
--- NOTE | 2025-08-02 12:41 | AM.OFFVISNUR ---
Intake Visit Reasons: nurse visit bilateral ear flush Allergies haloperidol (From Haldol) Allergy (Unknown, Verified 03/29/25 10:40) Unknown Seasonal Allergies Allergy (Verified 03/29/25 10:40) Eyes itch lactose Adverse Reaction (Unknown, Verified 03/29/25 10:40) Constipation Office Procedures Cerumen Removal From which ear canal was the cerumen removed: bilateral Removal: irrigation Notes: patient tolerated procedure well and no complications [id number] Irrigation/Lavage Assessment & Plan Assessment & Plan Orders: Orders AMB Cerumen Removal Today H61.23 - Impacted cerumen, bilateral Coding CPT Codes Office Procedure - CPT: 10963-Rpd Irrigation/Lavage ([id number])
== END 2025-08-02 12:39 | disposition home or self-care (01) ==
LOC: HO.HMCFM 11:56
PROVIDERS: PCP Physician Assistant Medical; Visit Provider Physician Assistant Medical
DX: H61.23 Impacted cerumen, bilateral (principal)

== ENCOUNTER → 2025-08-02 11:55 | Outpatient (BNVA) | payer MEDICARE, OTHER, MEDICAID, SELFPAY | PROVIDERS: PCP Physician Assistant Medical; Visit Provider Physician Assistant Medical | DX: H61.23 Impacted cerumen, bilateral (principal) | CPT/HCPCS: 69209 ==